=== PATIENT | male | born 1950 | race Caucasian/White ===

== ENCOUNTER 2020-05-29 07:12 | Day surgery (SDC) | payer MEDICARE, SELFPAY ==
[2020-05-23 15:05] VITALS: BMI 23.3
[2020-05-29] MEDS: Lactated Ringers 1,000 ML 50 ML IVCONT (07:52)
[2020-05-29 07:54] VITALS: BP 151/84; PULSE 81; RESP 16; TEMP 36.3; O2SAT 97
--- NOTE | 2020-05-29 07:59 | P.CONAN_ITS ---
[facility] Past Medical History Medical History Arrhythmia Diabetes GERD (gastroesophageal reflux disease) HTN (hypertension) Wears dentures Surgical History Surgical History (Updated 05/23/20 @ 15:09 by Mabel Cabrera) History of lumbar laminectomy Social History Social History Smoking Status: Former smoker Smoked in Last 30 Days: No Smoking Quit Date: 2009 Use of substances other than those prescribed or required for medical reasons: No Advance Directives Information Provided: No Recently lost weight without trying: No Meds Allergies Allergy/AdvReac Type Severity Reaction Status Date / Time No Known Allergies Allergy Verified 05/23/20 15:11 Home Medications Medication Instructions Recorded Confirmed Type amlodipine 1 tab PO BEDTIME 05/23/20 05/23/20 History aspirin [Aspirin Low-Strength] 81 mg PO DAILY 05/23/20 05/23/20 History pantoprazole 1 tab PO DAILY 05/23/20 05/23/20 History quinapril 1 tab PO DAILY 05/23/20 05/23/20 History Exam Exam Date and Time: May 29, 2020 0759 Height,Weight and Vital Signs: Height 5 ft 5 in Weight 63.503 kg Airway Mallampati Class: II TM Dist: >3cm Neck ROM: Full Denture: Upper and Lower Heart: rrr+s1s2 Lungs: cta b/l Assessment and Plan Assessment Anesthesia Assessment: Anesthesia Plan Discussed and Chart Reviewed Final Anesthetic Review NPO: Yes ASA Class: II Final Preanesthetic Review: No Changes in Pt Med Stat, Meds/Allgs Chart Reviewed, Consent Obtained/Reviewed and Anes Risks/Benef Reviewed Patient Risk: Low Procedure Risk: Low Assessment/Block/Sedation in SS: Assess/Block/Sedation-SS Anesthetic Plan Anesthetic Plan: MAC: Disposition: Standard PACU
--- NOTE | 2020-05-29 08:14 | MHC.SHP ---
Pre-Procedural Eval Section B Chief Complaint: reflux Details of Present Illness: see H&P no changes Relevant Family History (Specify if Yes): No Present Medications: see Short Stay Collaborative assessment Medical History: No relevant PMH History of Previous Operations: No relevant previous surgery Allergies: Allergies Allergy/AdvReac Type Severity Reaction Status Date / Time No Known Allergies Allergy Verified 05/23/20 15:11 Review of Systems Sugical H&P ROS: Negative: Constitution, Cardiovascular, Respiratory, Neurological, Psychiatric, Hem-Onc, Allergic/Immunologic, Gastrointestinal, Genitourinary, Musculoskeletal, Integumentary, Endocrine and Eyes/Ears/Nose/Throat Exam Surgical H&P Exam: Normal: HEENT, Normal: Heart, Normal: Lungs, Normal: Extremities, Normal: Abdomen, Normal: Skin and Normal: Neurological Plan Diagnosis/Plan: Unchanged Patient has been examined and remains a candidate for the planned procedure
[2020-05-29 08:39] VITALS: BP 86/53; PULSE 66; RESP 12; TEMP 36.9; O2SAT 99
[2020-05-29 08:54] VITALS: BP 108/65; PULSE 71; RESP 16; TEMP 36.9; O2SAT 96
--- NOTE | 2020-05-29 09:00 | OP_ITS ---
SURGEON: Yanick Herr MD PREOPERATIVE DIAGNOSIS: POSTOPERATIVE DIAGNOSIS: PROCEDURE PERFORMED: Upper endoscopy with biopsy. ESTIMATED BLOOD LOSS: COMPLICATIONS: ANESTHESIA: ASSISTANTS: SPECIMENS: INDICATION: Gastroesophageal reflux disease. MEDICATIONS: Monitored anesthesia care. DESCRIPTION OF PROCEDURE: The history and physical performed. The risks and benefits of the procedure were explained to the patient. Informed consent was obtained. The patient was placed in the left lateral decubitus position. The Olympus video gastroscope was introduced into the esophagus, stomach, and duodenum. Examination was performed. The scope was removed. He tolerated the procedure well and was taken to recovery in stable condition. FINDINGS: Esophagus: The esophagus was normal. There was no esophagitis. Biopsies were obtained from the EG junction and at 30 cm. Stomach: The stomach showed no evidence of masses, ulcers, or polyps. Biopsies were obtained from the antrum. Duodenum: The bulb and second portion were normal. IMPRESSION: Gastroesophageal reflux disease. RECOMMENDATION: Follow up the biopsy results. MD RENATE Loo/MODL / [id number]
--- NOTE | 2020-05-29 09:23 | HO.POSTANES ---
Post Anesthesia Evaluation Post Anesthesia Evaluation Vital Signs: Vital Signs Temp Pulse Resp BP Pulse Ox 05/29/20 08:54 98.4 F 71 16 108/65 96 05/29/20 08:39 98.4 F 66 12 86/53 L 99 05/29/20 07:54 97.3 F 81 16 151/84 H 97 Anesthesia: Monitored Mental Status: Awake Pain Control: Satisfactory Nausea/Vomiting: None Hydration: Adequate Anesthesia-Related Issues: No Anes. Related Issues
--- NOTE | 2020-05-29 09:27 | PM.OP ---
Brief Operative Note Date of Service: 05/29/20 Pre-op diagnosis: gerd Post-op diagnosis: same Procedure: EGD Surgeon: Yanick Herr Anesthesia: MAC Estimated blood loss (mL): 5 Pathology: other (antrum,egj,esophagus 30 cm) Condition: stable Disposition: PACU
== END 2020-05-29 09:36 | disposition home or self-care (01) ==
PROVIDERS: PCP Family Medicine; Visit Provider Internal Medicine Gastroenterology
PROC: 0DJ08ZZ Inspection of Upper Intestinal Tract, Via Natural or Artificial Opening Endoscopic (ICD-10-PCS; CPT 43235; principal; 2020-05-29 08:20)
DX: K21.9 Gastro-esophageal reflux disease without esophagitis (principal); I10 Essential (primary) hypertension; E11.9 Type 2 diabetes mellitus without complications; Z87.891 Personal history of nicotine dependence; Z79.82 Long term (current) use of aspirin; Z79.899 Other long term (current) drug therapy
CPT/HCPCS: 43239; 88305; 88342

== ENCOUNTER → 2021-11-25 08:40 | Outpatient (REF) | payer MEDICARE, SELFPAY ==
--- NOTE | ~2021-11-25 | NM_ITS ---
Myocardial perfusion study Indication: Chest pain to evaluate for myocardial ischemia Technique: The patient was brought in for a Lexiscan perfusion study on 11/25/2021. Patient performed low-level exercise and was injected 0.4 mg of Lexiscan intravenously. Within a minute of injection, 25 mCi of sestamibi was given intravenously. Images were obtained using the SPECT gamma camera interlaced with the gating device. Images were obtained in supine position. Resting perfusion study was performed on 11/26/2021. Patient was administered 25 mCi of sestamibi intravenously at rest. Images were then obtained in supine position. Images obtained with and without CT attenuation. Total DLP 76 mGy-cm. Images were processed with the software and compared side to side in short axis, horizontal long axis and vertical long axis views. Findings: The stress perfusion study showed non attenuated images show mildly reduced uptake in the inferior inferoseptal wall of the LV myocardium. Remainder of the LV myocardium is normally perfused. Attenuation corrected images show normal uptake of radiotracer in all segments of LV myocardium. The gated study shows normal LV systolic function with calculated LVEF of greater than 70 %. LV cavity is normal size. The gated study shows normal systolic wall thickening and contraction of segments. Resting study shows no change in perfusion pattern compared to stress perfusion study. Gating at rest reveals normal systolic wall motion with ejection fraction at greater than 70 %. The findings are consistent with normal myocardial perfusion. NM/NM errol perf SPECT rest & str Impression: 1. Myocardial perfusion imaging study shows normal myocardial perfusion 2. Gated LVEF is greater than 70% 3. Transient ischemic dilatation not present EKG is nondiagnostic for ischemia
--- NOTE | ~2021-11-25 | XR_ITS ---
EXAMINATION: XR CHEST CLINICAL INFORMATION: SOB. COMPARISON: Chest 07/29/2019. TECHNIQUE: 2 views of the chest were obtained. FINDINGS: The lungs are hyperinflated but clear of acute process. The heart size and pulmonary vascularity is normal. No gross bony abnormality seen. XR/XR chest 2V IMPRESSION: Unremarkable chest exam. No change from chest x-ray 07/29/2019.
--- NOTE | 2021-11-25 08:47 | CA_ITS ---
Acquisition Time: 2021-11-25 08:54:13 Total Exercise Time: 00:02:00 Test Indications: Dyspnea Medications: AMLODIPINE PANTOPRAZOLE ZYRTEC Protocol: LEXISCAN Max HR: 112 BPM 75% of Pred: 148 BPM Max BP: 160/086 mmHG Max Work Load: 1.0 METS Pharmacological stress test with Lexiscan injection, while sitting, without anginal symptoms, without arrythmia, with normotensive response to injection, with nondiagnostic EKG for ischemia.Nuclear images pending, Test reviewed with Dr Nielsen. Note: test ordered as exercise nuclear stress test however baseline LBBB and it was changed to a pharmacological nuclear stress test. Referred By: Sonny Whitfield Overread By: PATSY BHATT
== END ==
LOC: HO.CARD 08:40
PROVIDERS: PCP Family Medicine; Visit Provider Family Medicine
DX: R07.9 Chest pain, unspecified (principal); R06.09 Other forms of dyspnea; I10 Essential (primary) hypertension; E11.9 Type 2 diabetes mellitus without complications
CPT/HCPCS: 71046; 78452; 93017; A9500; J0280; J2785

== ENCOUNTER 2025-01-19 15:19 | Outpatient (REF) | payer MEDICARE, SELFPAY ==
--- NOTE | ~2025-01-19 | US_ITS ---
CLINICAL HISTORY: bilat. carotid stenosis US bilateral carotid duplex Comparison: None provided Findings: Significant calcified and mild soft plaques of left carotid bulb and proximal ICA. Moderate soft plaque of the right mid ICA. Elevated peak systolic velocity of left proximal ICA and right mid to distal ICA with spectral broadening, worse on the left. Peak systolic velocities: Right CCA: 80 cm/s Right ICA: 104 cm/s proximally, 232 cm/s at the midsegment, 168 cm/s distal segment ICA/CCA ratio: 0.8 Right ECA: Unremarkable Right vertebral and subclavian artery flow antegrade. Left CCA: 72 cm/s Left ICA: 826 cm/s proximal segment, 125 cm/s midsegment, 53 cm/s ICA/CCA ratio: 8.1 Left ECA: Unremarkable Left vertebral and subclavian artery flow antegrade. Impression: 1. Hemodynamically severe stenosis of left proximal ICA 80-99%. 2. Moderate stenosis of right mid ICA 50-79%. 3. Recommend CT angiography with IV contrast and interventional radiology consultation. This document has been electronically signed by: Katelyn Marin MD on 01/19/2025 16:49:54
--- OUTSIDE RECORDS SUMMARY | 2025-01-19 15:22 | XMS_ITS | Clinical Summary ---
Author Organization [facility] [employer] Address [address] [place] [address] Phone Care Team Providers Care Telephone Coin Box Collector Name Role Phone Sonny Whitfield MD Primary Care Provider [phone] Allergies No known active allergies Medications lisinopriL (PRINIVIL,ZESTR IL) 10 mg tablet Take 1 tablet (10 mg total) by mouth 1 (one) time each day. Active pantoprazole (PROTONIX) 40 mg EC tablet Take 1 tablet (40 mg total) by mouth 1 (one) time each day before breakfast. Do not crush, chew, or split. Active finasteride (PROSCAR) 5 mg tablet Take 1 tablet (5 mg total) by mouth 1 (one) time each day. Do not crush, chew, or split. Active aspirin 81 mg EC tablet Take 1 tablet (81 mg total) by mouth 1 (one) time each day. Active tamsulosin (FLOMAX) 0.4 mg 24 hr capsule Take 1 capsule (0.4 mg total) by mouth 1 (one) time each day with breakfast. Capsules should be taken 30 minutes following the same meal each day. Active amLODIPine (NORVASC) 5 mg tablet Take by mouth 1 (one) time each day. Active metoprolol succinate (TOPROL-XL) 25 mg 24 hr tablet Take 1 tablet (25 mg total) by mouth 1 (one) time each day. Do not crush or chew. Active Active Problems Problem Noted Date Diagnosed Date LBBB (left bundle branch block) 06/29/2024 Assessment & Plan (06/29/2024 4:29 PM EST): Idiopathic LBBB with prior evaluation including echo and stress test not demonstrating evidence of structural heart disease. We discussed that idiopathic LBBB has a favorable prognosis and a small proportion of patients will develop additional conduction disease in their lifetime. Monitor clinically and with periodic EKGs ~ yearly. PSVT (paroxysmal supraventri cular tachycardia) (CMS/HCC V24) 06/29/2024 Assessment & Plan (06/29/2024 4:32 PM EST): Paroxsymal SVT. One more extensive episode occurred recently which responded favorably to beta rona. I recommended continuing Metoprolol and monitoring frequency/severity of episodes. If they progress, then would need to consider addition of anti arrhythmic therapy vs ablation. I recommended an echocardiogram to evaluate cardiac structure and function in case anti arrhythmics are needed in the near term. Social History Tobacco Use Types Packs/Day Years Used Date Smoking Tobacco: Never Smokeless Tobacco: Never Tobacco Cessation:Counseling Given: Not Answered Alcohol Use Standard Drinks/Week Comments Yes 0 (1 standard drink = 0.6 oz pur e alcohol) occ Sex and Gender Information Value Date Recorded Sex Assigned at Not on file Legal Sex Male 3:00 PM EST Gender Identity Not on file Sexual Orientation Not on file Obstetrics History Last Filed Vital Signs Vital Sign Reading Time Taken Comments Blood Pressure 168/72 09/12/2024 3:57 PM EST Pulse 78 06/27/2024 1:35 PM EST Temperature - - Respiratory Rate - - Oxygen Saturation 97% 06/27/2024 1:35 PM EST Inhaled Oxygen Concentration - - Weight 65.8 kg (145 lb) 09/12/2024 3:57 PM EST Height 162.6 cm (5' 4 ) 09/12/2024 3:57 PM EST Body Mass Index 24.89 09/12/2024 3:57 PM EST Plan of Treatment Upcoming Encounters Date Type Department Care Team (Late st Contact Info) Description 06/26/2025 1:40 PM EST Office Visit [facility] [address] [place] [address] [address] [place] [address] Jose Sullivan NP [address] [place] [address] [address] [place] [address] Health Maintenance Due Date Last Done Comments Zoster Vaccines (1 of 2) 11/18/1999 Hepatitis B Vaccines (3 of 3 - Hep B Twinrix 3-dose series) 05/14/2016 12/11/2015, 11/12/2015 Cholesterol Screening (Lipid Panel) 06/24/2024 Colorectal Cancer Screening: Colonoscopy 06/24/2024 Depression Screening 06/24/2024 Falls Risk Assessment 06/24/2024 Hepatitis C Screening 06/24/2024 Medicare Annual Wellness Visit 06/24/2024 Social Influencers of Health Screening 06/24/2024 COVID-19 Vaccine ( season) 2024 03/18/2024, 05/05/2023, 11/26/2022, Additional history exists RSV Immunization Adult Patients (1 - 1-dose 75+ series) 2024 Influenza Vaccine (#1) 2025 , 05/19/2023, 05/20/2022, Additional history exists DTaP,Tdap,and Td Vaccines (2 - Td or Tdap) 11/11/2025 11/12/2015 Hepatitis A Vaccines Aged Out 12/11/2015, 11/12/19 16 No longer eligible based on patient's age to complete this topic Pneumococcal Vaccine: 50+ Years Completed 04/09/2021, 05/20/2016 HIB Vaccines Aged Out No longer eligi ble based on patient's age to complete this topic HPV Vaccines Aged Out No longer eligi ble based on patient's age to complete this topic IPV Vaccines Aged Out No longer eligi ble based on patient's age to complete this topic MMR Vaccines Aged Out No longer eligi ble based on patient's age to complete this topic Meningococcal ACWY Vaccine Aged Out N o longer eligible based on patient's age to complete this topic Meningococcal B Vaccine Aged Out No l onger eligible based on patient's age to complete this topic RSV Immunization Patients Under 20 months Aged Out No longer eligible based on patient's age to complete this topic Varicella Vaccines Aged Out No longer eligible based on patient's age to complete this topic Insurance [employer] Care Teams Telephone Coin Box Collector Relationship Specialty Start Date End Date Sonny Whitfield MD [address] [place] [address] Dr Rogers [facility] [place] [address] PCP - General Internal Medicine 06/24/24
--- OUTSIDE RECORDS SUMMARY | 2025-01-19 15:22 | XMS_ITS | Patient Health Record ---
Author Organization [facility] Address [address] [place] [id number] Care Team Providers Care Platform Software Engineer Name Role Phone Nahid BASHIR, Sonny Primary Care Provider UnavailYanick Cason Jr Unavailable Allergies Allergen (clinical drug ingredient) Drug/Non Drug Allergy documented on EMR Reaction Allergy Type Onset Date Status Seasonale Unknown Drug Allergy Active Reason For Referral No Information Medications Medication SIG (Take, Route, Frequency, Duration) Notes Start Date End Date Status Omeprazole Active Quinapril HCl 10 MG 1 tablet Orally Once a day Active Multivitamin Active Pantoprazole Sodium 40 MG TAKE 1 TABLET BY MOUTH EVERY DAY for 90 Needs f/u office visit. Active Famotidine 40 MG/5ML as directed Orally Active amLODIPine Besylate 5 MG 1 tablet Orally Once a day Active Immunizations Vaccine Route Administration Date Status Comme nts Influenza Unknown 04/10/2020 Administered Influenza Unknown 05/01/2021 Administered Social History Tobacco Use: Social History Observation Description Date Details (start date - stop date) Never Smoker NA - NA Tobacco Use/Smoking Question Answer Notes Patient is a nonsmoker Alcohol Screen Question Answer Notes Did you have a drink contain ing alcohol in the past year? Yes How often did you have a dri nk containing alcohol in the past year? 4 or more times a week (4 points) How many drinks did you have on a typical day when you were drinking in the past year? 1 or 2 drinks (0 point) How often did you have 6 or more drinks on one occasion in the past year? Never (0 point) Points 4 Interpretation Positive Section Notes: Ocassional wine at dinner Ocassional wine at dinner Problems Problem Type SNOMED Code ICD Code Onset Dates Problem Status W/U Status Risk Notes Problem [id number] GERD without esophagitis (K21.9) Active confirmed Problem [id number] Colonoscopy refused (Z53.20) Active confirmed Plan Of Treatment Future Test Test Name Order Date UPPER GI ENDOSCOPY 04/27/2020 Insurance Providers Payer Name Payer Address Payer Phone Subscriber Number Group Number Insured Name Patient Relationship to Insured Coverage Start Date Coverage End Date [facility] [address] [place] [phone] [id number] SABAS LEE Self - patient is the insured Medical (General) History Medical History History ICD Code Gastroesophageal reflux dise ase, upper endoscopy 05/29/20, no esophagitis, no BE or HP on biopsies hypertension Colonoscopy refused by patient Surgical History Surgery Date(Month/Year) lumbar laminectomy
== END 2025-01-19 15:20 | disposition home or self-care (01) ==
LOC: HO.US 15:19
PROVIDERS: Absent Provider Internal Medicine; PCP Internal Medicine; Visit Provider Family Medicine
DX: G45.1 Carotid artery syndrome (hemispheric) (principal)
CPT/HCPCS: 93880

== ENCOUNTER → 2025-01-19 15:36 | Outpatient (BNV) | payer MEDICARE, SELFPAY | PROVIDERS: Absent Provider Internal Medicine; PCP Internal Medicine; Visit Provider Radiology Diagnostic Radiology | DX: I65.23 Occlusion and stenosis of bilateral carotid arteries (principal) | CPT/HCPCS: 93880 ==

== ENCOUNTER 2025-01-31 08:53 | Outpatient (REF) | payer MEDICARE, SELFPAY ==
[2025-01-31 11:07] LABS: Blood Urea Nitrogen 25 mg/dL (9-16); Estimated Glomerular Filt Rate 50
== END 2025-01-31 08:54 | disposition home or self-care (01) ==
LOC: HO.LAB 08:53
PROVIDERS: PCP Internal Medicine; Visit Provider Surgery Vascular Surgery
DX: I65.22 Occlusion and stenosis of left carotid artery (principal); I87.2 Venous insufficiency (chronic) (peripheral); E11.9 Type 2 diabetes mellitus without complications
CPT/HCPCS: 36415; 82565; 84520; 99202

== ENCOUNTER 2025-01-31 08:53 | Outpatient (AMB) | payer MEDICARE, SELFPAY ==
--- NOTE | 2025-01-31 08:57 | MHC.OFFVIS ---
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 Had carotid US on January 19. No complaints. 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 The condition was initially identified during a visit with Dr. Whitfield, where bruits were detected, prompting further investigation. The patient is asymptomatic, with no history of vision loss, garbled speech, or loss of function. An ultrasound revealed plaque buildup on the left carotid artery, categorizing the patient as asymptomatic but with significant blockage. The patient has a history of type 2 diabetes mellitus, managed through diet, with a recent A1c of 5.6%. He quit smoking 20 years ago and has a history of supraventricular tachycardia, managed with metoprolol 50 mg, which resolved the episodes. The patient reports regular exercise, walking an hour and a half daily, which helps manage mild venous insufficiency in the left foot. He has a low resting heart rate attributed to metoprolol and physical activity. [facility] Medical History Wears dentures Diabetes GERD (gastroesophageal reflux disease) Arrhythmia HTN (hypertension) Surgical History History of lumbar laminectomy Review of Systems Const All systems reviewed & are unremarkable except as noted in HPI and below Reports no additional complaints ENT Reports Normal hearing present Card Denies chest pain, Denies chest pain at rest, Denies chest pain with activity and Denies pedal edema Resp Denies cough GI Denies abdominal pain Musc Denies abnormal gait, Denies muscle cramps and Denies radiating pain into limb Skin/Breast Denies skin ulcer and Denies wounds Neuro Reports Normal hearing present and Denies abnormal gait Psych Reports no additional complaints Physical Exam Const General: cooperative, healthy appearing and comfortable Orientation/consciousness: oriented to person, oriented to place and oriented to time HEENT Head: Yes normal to inspection Neck Neck: Yes normal visual inspection Carotids: no bruits Chest Chest palpation & inspection: normal inspection of the chest Resp Effort & Inspection: normal respiratory effort and able to speak in complete sentences Auscultation: clear to auscultation bilaterally, no crackles, no rales, no rhonchi and no wheezes Cardio Rate: regular rate Rhythm: regular rhythm Heart sounds: S1 normal heart sound present and S2 normal heart sound present Bruits: no carotid bruits Peripheral pulses: Peripheral pulses 2+ throughout GI Inspection: Yes normal to inspection Skin Wounds: no wounds Hair: normal Neuro General: oriented to person, oriented to place and oriented to time Cranial nerves: Yes CN's II-XII intact bilaterally and Yes Normal hearing present Cognition (Neuro): normal cognition Motor exam (neuro): 5/5 motor strength present throughout Extrem Other: venous exam: No significant superficial varicosities or spider telangiectasias, minimal edema General: No clubbing, No cyanosis and No edema Psych Appearance: grossly normal Mental Status: mental status grossly normal Speech and movement: Normal speech and movement present Results Reviewed Results Reviewed: Ultrasound dated 01/19/2025 demonstrates right side 50-79% stenosis left side 80-99% stenosis with a peak systolic velocity of 826. Written report and images were reviewed. Assessment & Plan Assessment & Plan (1) Left carotid stenosis: Code(s): I65.22 - Occlusion and stenosis of left carotid artery Category: Medical Plan: In short patient has asymptomatic high-grade left carotid stenosis.. We have reviewed signs and symptoms of a stroke. We also discussed risk factor modification inclusive a healthy diet low in cholesterol. The patient has already had ultrasound performed. He will need a confirmatory CT scan to better elucidate location of disease. We will try to expedite this.. Should there be any changes or signs or symptoms of a stroke we will be happy to see them back sooner. Thank you for allowing us to participate in this patient's care. If there are any questions or concerns please do not hesitate to contact us. Orders: Orders CT angio neck Today I65.22 - Occlusion and stenosis of left carotid artery Blood Urea Nitrogen Today I65.22 - Occlusion and stenosis of left carotid artery Creatinine Today I65.22 - Occlusion and stenosis of left carotid artery Coding Level of Care Code New Pt Level 4 (69718) Complex EM visit Add On G2211 Diagnoses Left carotid stenosis I65.22
--- OUTSIDE RECORDS SUMMARY | 2025-01-31 09:18 | XMS_ITS | Patient Health Record ---
Author Organization [facility] Address [address] [place] [phone] Care Team Providers Care Area Development Consultant Name Role Phone Nahid (RETIRED) Sonny BASHIR Primary Care Provider Unavailable Yanick Herr Jr Unavailable [phone] Allergies Allergen (clinical drug ingredient) Drug/Non Drug [...] Problem Status W/U Status Risk Notes Problem [id number] GERD without esophagitis (K21.9) Active confirmed Problem [id number] Colonoscopy refused (Z53.20) Active confirmed Plan Of Treatment Future Test Test Name Order Date UPPER GI ENDOSCOPY 04/27/2020 Insurance Providers Payer Name Payer Address Payer Phone Subscriber Number Group Number Insured Name Patient Relationship to Insured Coverage Start Date Coverage End Date [facility] [address] [place] [place] [place] [phone] [id number] SABAS LEE Self - patient is the insured Medical (General) History Medical History History ICD Code Gastroesophageal reflux dise ase, upper endoscopy 05/29/20, no esophagitis, no BE or HP on biopsies hypertension Colonoscopy refused by patient Surgical History Surgery Date(Month/Year) lumbar laminectomy
--- OUTSIDE RECORDS SUMMARY | 2025-01-31 09:18 | XMS_ITS | Clinical Summary ---
Author Organization [facility] Address [address] [place] [address] Phone Care Team Providers Care Rubber Cutter And Shape Carver Name Role Phone Sonny Whitfield MD Primary Care Provider [phone] Allergies No known active allergies Medications lisinopriL [...] 06/26/2025 1:40 PM EST Office Visit [facility] [address] [place] [address] Dr Maldonado [address] [place] [address] Jose Sullivan NP [address] [place] [address] Dr Rogers [address] [place] [address] Health Maintenance Due Date Last Done Comments Zoster Vaccines (1 of 2) 11/18/1999 Hepatitis B Vaccines (3 of 3 - Hep B Twinrix 3-dose series) 05/14/2016 12/11/2015, 11/12/2015 Cholesterol Screening (Lipid Panel) 06/24/2024 Colorectal Cancer Screening: Colonoscopy 06/24/2024 Falls Risk Assessment 06/24/2024 Hepatitis C Screening 06/24/2024 Medicare Annual Wellness Visit 06/24/2024 Social Influencers of Health Screening 06/24/2024 Depression Screening 07/13/2024 COVID-19 Vaccine ( season) 2024 03/18/2024, 05/05/2023, [...] [employer] [place] [employer] Care Teams Rubber Cutter And Shape Carver Relationship Specialty Start Date End Date Sonny Whitfield MD [address] [place] [address] Dr Rogers [facility] [place] [place] [address] PCP - General Internal Medicine 06/24/24
== END 2025-01-31 09:41 | disposition home or self-care (01) ==
LOC: HO.HVS 08:54
PROVIDERS: PCP Internal Medicine; Visit Provider Surgery Vascular Surgery
DX: I65.22 Occlusion and stenosis of left carotid artery (principal)
CPT/HCPCS: 99204; G2211

== ENCOUNTER 2025-02-09 09:12 | Outpatient (REF) | payer MEDICARE, SELFPAY ==
--- NOTE | ~2025-02-09 | CT_ITS ---
EXAMINATION: CT ANGIOGRAM NECK CLINICAL INFORMATION: Hemodynamically skin stenosis left proximal ICA 80-99%. COMPARISON: None available. TECHNIQUE: Following intravenous administration 80 mL of O[address] CT angiogram of the neck was obtained. Initially to a thin axial and reformatted 8 mm thick sagittal, coronal and oblique images of neck were obtained. The degree of stenosis determined by NASCET criteria. This CT examination was performed using dose optimization techniques as appropriate, variously including the following: *Automated exposure control *Adjustment of mA and/or kV according to patient size (this includes techniques or standardized protocols for targeted exams where dose is matched to indication/reason for exam; i.e. extremities or head) *Use of iterative reconstruction technique DLP 308 FINDINGS: There is patient motion in superior half of the neck limiting evaluation. Vascular: The thoracic arch is widely patent with atherosclerotic calcification but no aneurysmal dilatation seen. There is a three-vessel branching of aortic arch with widely patent right brachiocephalic, left common carotid and left subclavian artery. Minimal hard plaque is seen at the origin of left subclavian artery. The right brachiocephalic artery bifurcates normally into common carotid and right subclavian artery which are widely patent. The right vertebral artery origin of this fluid signal subclavian is widely patent as well. Visualized first and second segment subpleural nodules are patent. Origin of left vertebral artery is widely patent. Both vertebral arteries are widely patent and appear codominant throughout the course of the neck extending intracranially. The right common carotid artery is patent with normal bifurcation into internal and extra carotid arteries which are patent throughout the neck. There is minimal atherosclerotic calcified plaque in the right proximal ICA with minimal circumferential thrombus with narrowing measuring 1.9 cm in transverse dimension on axial slice 194/12. Distal to the narrowing ICA measures 4.1 cm with a 52% stenosis. The bulb is patent. The right ICA rest of the neck is widely patent. The left common carotid artery is patent in its neck and bifurcates normally into internal and external carotid artery. The bulbous patent. The external carotid arteries widely patent. Severe high-grade stenosis left proximal ICA is noted. The transverse lumen at stenosis on axial image 189/12 measures 7 mm. The transverse lumen there is distal to the narrowing measures 3.88 mm. As per NASCET criteria the stenosis is approximately 83%. Rest left internal carotid artery is widely patent in the neck. Both jugular veins are codominant and patent. Nonvascular: There is diffuse emphysematous changes in both lung apices. The tracheal, bronchial and pharyngeal airway is patent. No abnormal mediastinal adenopathy seen. Visualized bilateral parotid and submandibular gland are widely patent. Visualized bilateral paranasal sinuses and mastoid air cells are well-aerated. There is mild DJD C4-5, C5-6, C6/7 disc levels with ventral and posterior spondylosis. No fracture or lytic process seen. CT/CT angio neck IMPRESSION: 80% stenosis left proximal ICA by NASCET criteria. 52% stenosis right proximal ICA by NASCET criteria. Hard atherosclerotic calcified plaques seen at the origin of left subclavian artery and bilateral carotid bulbs. Codominant vertebral arteries which are widely patent Fleischner guidelines were followed. Electronically signed by: Clark Mata MD 02/09/2025 02:27 PM EDT
--- OUTSIDE RECORDS SUMMARY | 2025-02-09 09:29 | XMS_ITS | Patient Health Record ---
Author Organization [facility] Address [address] [place] [address] Care Team Providers Care Supervisor Feed House Name Role Phone Nahid (RETIRED) Sonny BASHIR Primary Care Provider Unavailable Yanick Herr Jr Unavailable Allergies Allergen (clinical drug ingredient) [...] Problem Status W/U Status Risk Notes Problem [id number] GERD without esophagitis (K21.9) Active confirmed Problem [id number] Colonoscopy refused (Z53.20) Active confirmed Plan Of Treatment Future Test Test Name Order Date UPPER GI ENDOSCOPY 04/27/2020 Insurance Providers Payer Name Payer Address Payer Phone Subscriber Number Group Number Insured Name Patient Relationship to Insured Coverage Start Date Coverage End Date [facility] [address] [facility] [place] [address] [phone] [id number] SABAS LEE Self - patient is the insured Medical (General) History Medical History History ICD Code Gastroesophageal reflux dise ase, upper endoscopy 05/29/20, no esophagitis, no BE or HP on biopsies hypertension Colonoscopy refused by patient Surgical History Surgery Date(Month/Year) lumbar laminectomy
--- OUTSIDE RECORDS SUMMARY | 2025-02-09 09:29 | XMS_ITS | Clinical Summary ---
Author Organization [facility] Address [address] [place] [address] Phone Care Team Providers Care County Commissioner Name Role Phone Sonny Whitfield MD Primary Care Provider [phone] Allergies No known active allergies Medications lisinopriL [...] 06/26/2025 1:40 PM EST Office Visit [facility] [address] [place] [address] Dr Maldonado [address] [place] [address] Jose Sullivan NP [address] [place] [address] Dr [address] [place] [address] Health Maintenance Due Date Last Done Comments [...] [employer] [place] [employer] Care Teams [place] Commissioner Relationship Specialty Start Date End Date Sonny Whitfield MD [address] [place] [address] Dr Rogers [facility] [place] [address] PCP - General Internal Medicine 06/24/24
[2025-02-09] MEDS: iohexoL 350 MG/ML 100 ML INFUS..BTL IV (10:37)
== END 2025-02-09 09:13 | disposition home or self-care (01) ==
LOC: HO.CT 09:12
PROVIDERS: PCP Internal Medicine; Visit Provider Surgery Vascular Surgery
DX: I65.22 Occlusion and stenosis of left carotid artery (principal)
CPT/HCPCS: 70498; Q9967

== ENCOUNTER → 2025-02-09 09:13 | Outpatient (BNV) | payer MEDICARE, SELFPAY | PROVIDERS: PCP Internal Medicine; Visit Provider Radiology Diagnostic Radiology | DX: I65.22 Occlusion and stenosis of left carotid artery (principal) | CPT/HCPCS: 70498 ==

== ENCOUNTER 2025-02-21 08:49 | Outpatient (AMB) | payer MEDICARE, SELFPAY ==
[2025-02-21 09:00] VITALS: BP 142/90; BMI 24.0
--- NOTE | 2025-02-21 09:00 | MHC.OFFVIS ---
Vital Signs 02/21/25 09:00 02/21/25 09:05 Height 5 ft 4 in Weight 140 lb BMI 24.0 BP 142/90 H 140/84 H Blood Pressure Location Lt brachial Rt brachial Position Sitting Sitting Intake Visit Reasons: 1 week follow up CTA Neck 02/09/25 Intake Note: 1 week follow up CTA Neck 02/09/25, no complaints other than tension headaches Philanthropy Officer Required: No Accompanied by: Spouse Allergies No Known Allergies Allergy (Verified 02/21/25 09:01) HPI HPI 1 week follow up CTA Neck 02/09/25: Details: Patient presents for follow-up regarding left carotid stenosis. This was originally identified as a carotid bruit by his primary care team. He has been asymptomatic from this. He had undergone noninvasive testing demonstrating high-grade left carotid stenosis. He most recently underwent CT angiogram. He has had no interval issues. He has no issues climbing up 2 flights of stairs. Of note he has had an outside echo performed on 09/12/2024 [facility] Medical History Wears dentures Diabetes GERD (gastroesophageal reflux disease) Arrhythmia HTN (hypertension) Surgical History History of lumbar laminectomy Review of Systems Const All systems reviewed & are unremarkable except as noted in HPI and below Reports no additional complaints ENT Reports Normal hearing present Card Denies chest pain, Denies chest pain at rest, Denies chest pain with activity and Denies pedal edema Resp Denies cough GI Denies abdominal pain Musc Denies abnormal gait, Denies muscle cramps and Denies radiating pain into limb Skin/Breast Denies skin ulcer and Denies wounds Neuro Reports Normal hearing present and Denies abnormal gait Psych Reports no additional complaints Physical Exam Vital Signs: Last Vital Signs BP 140/84 H 02/21/25 09:05 BMI result Body Mass Index 24.0 Const General: cooperative, healthy appearing and comfortable Orientation/consciousness: oriented to person, oriented to place and oriented to time HEENT Head: Yes normal to inspection Neck Neck: Yes normal visual inspection Carotids: no bruits Chest Chest palpation & inspection: normal inspection of the chest Resp Effort & Inspection: normal respiratory effort and able to speak in complete sentences Auscultation: clear to auscultation bilaterally, no crackles, no rales, no rhonchi and no wheezes Cardio Rate: regular rate Rhythm: regular rhythm Heart sounds: S1 normal heart sound present and S2 normal heart sound present Bruits: no carotid bruits Peripheral pulses: Peripheral pulses 2+ throughout GI Inspection: Yes normal to inspection Skin Wounds: no wounds Hair: normal Neuro General: oriented to person, oriented to place and oriented to time Cranial nerves: Yes CN's II-XII intact bilaterally and Yes Normal hearing present Cognition (Neuro): normal cognition Motor exam (neuro): 5/5 motor strength present throughout Extrem Other: venous exam: No significant superficial varicosities or spider telangiectasias, minimal edema General: No clubbing, No cyanosis and No edema Psych Appearance: grossly normal Mental Status: mental status grossly normal Speech and movement: Normal speech and movement present Results Reviewed Results Reviewed: CT scan dated 02/09/2025 demonstrates left-sided carotid stenosis of 80% right-sided stenosis of 52% written report and images were reviewed. Echo from 09/12/2024 was reviewed and demonstrates an ejection fraction of 60-65% with no wall motion abnormalit Assessment & Plan Assessment & Plan (1) Left carotid stenosis: Code(s): I65.22 - Occlusion and stenosis of left carotid artery Category: Medical Plan: In short patient will require left carotid endarterectomy. Risks benefits complications including but not limited to bleeding infection stroke and were discussed in detail with the patient. Patient understood and consented. He will require cardiac risk stratification. Thank you for allowing us to assist in his care. If there are any questions or concerns please do not hesitate to contact us Plan Patient was informed and verbally consented to the use of an ambient scribe for clinic note documentation during this visit. Patient Instructions: . Coding Level of Care Code Est Pt Level 4 (73634) Complex EM visit Add On G2211 Diagnoses Left carotid stenosis I65.22
[2025-02-21 09:05] VITALS: BP 140/84
--- OUTSIDE RECORDS SUMMARY | 2025-02-21 09:08 | XMS_ITS | Patient Health Record ---
Author Organization [facility] Address [address] [place] [address] Care Team Providers Care Urban Planning Teacher Name Role Phone Nahid (RETIRED) Sonny BASHIR [...] Problem Status W/U Status Risk Notes Problem [id number] GERD without esophagitis (K21.9) Active confirmed Problem [id number] Colonoscopy refused (Z53.20) Active confirmed Plan Of Treatment Future Test Test Name Order Date UPPER GI ENDOSCOPY 04/27/2020 Insurance Providers Payer Name Payer Address Payer Phone Subscriber Number Group Number Insured Name Patient Relationship to Insured Coverage Start Date Coverage End Date [facility] [address] [facility] [place] [phone] [id number] SABAS LEE Self - patient is the insured Medical (General) History Medical History History ICD Code Gastroesophageal reflux dise ase, upper endoscopy 05/29/20, no esophagitis, no BE or HP on biopsies hypertension Colonoscopy refused by patient Surgical History Surgery Date(Month/Year) lumbar laminectomy
--- OUTSIDE RECORDS SUMMARY | 2025-02-21 09:08 | XMS_ITS | Clinical Summary ---
Author Organization [facility] Address [address] [place] [address] Phone Care Team Providers Care Marquetry Worker Name Role Phone Sonny Whitfield MD Primary Care Provider [phone] Allergies No known active allergies Medications lisinopriL [...] Description 06/26/2025 1:40 PM EST Office Visit [facility] [address] [place] [address] Dr Maldonado [address] [place] [address] Jose Sullivan NP [address] [place] [address] Dr Rogers [address] [place] [address] Health Maintenance Due Date Last Done Comments [...] [employer] [place] [employer] ADVANTAGE Care Teams Marquetry Worker Relationship Specialty Start Date End Date Sonny Whitfield MD [address] [place] [address] Dr [place]ers [place] [address] PCP - General Internal Medicine 06/24/24
== END 2025-02-21 09:50 | disposition home or self-care (01) ==
LOC: HO.HVS 08:50
PROVIDERS: PCP Internal Medicine; Visit Provider Surgery Vascular Surgery
DX: I65.22 Occlusion and stenosis of left carotid artery (principal)
CPT/HCPCS: 99214; G2211

== ENCOUNTER → 2025-02-21 08:49 | Outpatient (BNVA) | payer MEDICARE, SELFPAY | PROVIDERS: PCP Internal Medicine; Visit Provider Surgery Vascular Surgery | DX: I65.22 Occlusion and stenosis of left carotid artery (principal) | CPT/HCPCS: 99212 ==

== ENCOUNTER 2025-04-10 10:29 | Inpatient (IN) | payer MEDICARE, SELFPAY ==
[2025-04-05 13:01] VITALS: BP 173/75; PULSE 67; RESP 20; O2SAT 97; BMI 25.3
[2025-04-05 14:22] LABS: Hematocrit 47.1 % (42.0-52.0); Hemoglobin 15.7 g/dl (14.0-18.0); Mean Corpuscular HGB Conc 33.3 g/dl (31.0-36.0); Mean Corpuscular Hemoglobin 28.5 pg (27.0-33.0); Mean Corpuscular Volume 85.5 fL (80.0-98.0); NRBC Abs Auto 0.000 X10*3/uL (0.0-0.012); NRBC Pct Auto 0.0 /100WBC (0.0-0.2); Platelet Count 175 X10*3/uL (160-400); Red Blood Count 5.51 X10*6/uL (4.60-5.80); White Blood Count 7.1 X10*3/uL (4.8-10.8)
[2025-04-05 14:59] LABS: INTERNATIONAL NORM RATIO 1.0 (0.9-1.1); Partial Thromboplastin Time 32.3 SEC (26.7-34.1); Prothrombin Time 11.1 SEC (10.9-12.4)
[2025-04-05 15:12] LABS: Anion Gap 12 (12-20); Blood Urea Nitrogen 24 mg/dL (9-16); Calcium 9.9 mg/dL (8.4-10.2); Carbon Dioxide 29 mmol/L (22-29); Chloride 106 mmol/L (96-108); Creatinine Clr Calc Pharmacy 40.1; Estimated Glomerular Filt Rate 52; Potassium 5.5 mmol/L (3.3-5.1); Sodium 141 mmol/L (135-145)
[2025-04-10] VITALS (34 sets, daily range): BP systolic 80–159; BP diastolic 38–75; PULSE 62–100; RESP 10–18; TEMP 36.2–36.7; O2SAT 91–98
--- NOTE | 2025-04-10 07:25 | MHC.SHP ---
Pre-Procedural Eval Section A - 24 Hr Update-Section A only Date of Service: 04/10/25 Section B - Complete if H&P > 30 days Chief Complaint: Occlusion and stenosis of left carotid artery Relevant Family History (Specify if Yes): No Present Medications: see Short Stay Collaborative assessment Allergies: Allergies Allergy/AdvReac Type Severity Reaction Status Date / Time Sulfa (Sulfonamide Allergy Severe severe Verified 04/05/25 13:00 Antibiotics) facial swelling Seasonal Allergies Allergy Intermediate hayfever Verified 04/05/25 13:00 symptoms Review of Systems Sugical H&P ROS: Negative: Constitution, Cardiovascular, Respiratory and Neurological Exam Surgical H&P Exam: Normal: HEENT, Normal: Heart, Normal: Lungs, Normal: Extremities and Normal: Neurological Plan Diagnosis/Plan: Unchanged I have reviewed the history and physical and performed a pertinent physical examination on my patient. No changes have occurred unless specified. Time Spent With Patient Time: Total time managing care of this patient today ____ minutes.
[2025-04-10] MEDS: Lactated Ringers 1,000 ML 100 ML IVCONT (10:32)
[2025-04-10 10:35] LABS: Glucose, Whole Blood 119 mg/dL (60-115)
[2025-04-10 10:40] LABS: Anion Gap 11 (12-20); Carbon Dioxide 28 mmol/L (22-29); Chloride 106 mmol/L (96-108); Potassium 3.8 mmol/L (3.3-5.1); Sodium 141 mmol/L (135-145)
--- NOTE | 2025-04-10 10:50 | HO.ANESPROP2 ---
Documented by User: Brooke Baltazar NP 04/05/25 15:29 HPI - Anesthesia Eval Consult details Narrative: 74yo M for Left Carotid Endarterectomy, 04/10/25 Cardiac optimized via [facility] Cardiology No recent illness, nasal congestion r/t allergies No CP/SOB with ~ 5 miles on treadmill nikko. Recent hiking trip to [facility] - noted some SOB with higher altitude, none when returning to baseline. Carotid ds: bruit heard by PCP and sent for work up White coat htn: BP's at home 90-110/60-70 SVT: controlled on beta rona DM: Diet controlled, A1C <6% Preop K mildly elevated @ 5.5. Discussed dietary changes with patient. Admits to eating a lot of bananas. Will hold off until DOS and recheck. PMFSH Active Problems Active Problems: All Active Problems Left carotid stenosis (Acute) Carotid stenosis, bilateral (Acute) Past Medical History Medical History (Updated 04/05/25 @ 13:07 by Mabel Cabrera RN) White coat syndrome with hypertension BPH (benign prostatic hyperplasia) Renal calculi Emphysema lung SVT (supraventricular tachycardia) LBBB (left bundle branch block) Wears dentures Diabetes GERD (gastroesophageal reflux disease) HTN (hypertension) Family History Family history of problems with anesthesia: No Surgical History Surgical History (Updated 04/05/25 @ 12:59 by Mabel Cabrera RN) Hx of cystoscopy History of esophagogastroduodenoscopy (EGD) History of lumbar laminectomy History of Problems with Anesthesia: No Social History Social History Are you a primary dialysis patient care technician to a significant other at home: No Do you presently have visiting nurse or other home services: No Patient Tobacco Use Status: Former Tobacco user Tobacco use type: Cigarette Years Smoked: 25 Use of substances other than those prescribed or required for medical reasons: No Have you been hit, kicked, punched, or otherwise hurt by someone within the past year? If so, by whom?: No Spiritual Healthcare Practices: no Faith Healthcare Practices: no Cultural Healthcare Practices: no Are you DNR?: No Advance Directives on File: No Poor oral hygiene: No Meds Allergies Allergy/AdvReac Type Severity Reaction Status Date / Time Sulfa (Sulfonamide Allergy Severe severe Verified 04/05/25 13:00 Antibiotics) facial swelling Seasonal Allergies Allergy Intermediate hayfever Verified 04/05/25 13:00 symptoms Home Medications ?Medication ?Instructions ?Recorded ?Confirmed ?Last Taken ?Type amlodipine 5 mg tablet 1 tab PO BEDTIME 05/23/20 04/04/25 05/28/20 22:00 History aspirin 81 mg tablet,delayed 81 mg PO QAM 05/23/20 04/05/25 05/23/20 08:00 History release pantoprazole 40 mg tablet,delayed 1 tab PO QAM 05/23/20 04/05/25 05/28/20 08:00 History release finasteride 5 mg tablet 5 mg PO QAM 01/31/25 04/05/25 Unknown History metoprolol succinate 50 mg 50 mg PO BEDTIME 01/31/25 04/05/25 Unknown History tablet,extended release 24 hr lisinopril 10 mg tablet 10 mg PO QAM 02/21/25 04/05/25 Unknown History tamsulosin 0.4 mg capsule 0.4 mg PO BEDTIME 02/21/25 04/05/25 Unknown History rosuvastatin 20 mg tablet 20 mg PO BEDTIME 04/04/25 04/05/25 Unknown History Exam Height,Weight and Vital Signs: Height 5 ft 4 in Weight 66.9 kg Last Vital Signs Pulse 67 04/05/25 13:01 Resp 20 04/05/25 13:01 BP 173/75 H 04/05/25 13:01 Pulse Ox 97 04/05/25 13:01 O2 Del Method Room Air 04/05/25 13:01 Pertinent Lab Results Pertinent Lab Results: Lab Results 04/05/25 04/05/25 Range/Units 13:50 14:03 WBC 7.1 (4.8-10.8) X10*3/uL RBC 5.51 (4.60-5.80) X10*6/uL Hgb 15.7 (14.0-18.0) g/dl Hct 47.1 (42.0-52.0) % MCV 85.5 (80.0-98.0) fL MCH 28.5 (27.0-33.0) pg MCHC 33.3 (31.0-36.0) g/dl RDW 13.3 (11.0-16.0) % Plt Count 175 (160-400) X10*3/uL MPV 10.5 (9.4-12.4) fL Absolute Nucleated RBC 0.000 (0.0-0.012) X10*3/uL Nucleated RBC % (auto) 0.0 (0.0-0.2) /100WBC PT 11.1 (10.9-12.4) SEC INR 1.0 (0.9-1.1) APTT 32.3 (26.7-34.1) SEC Sodium 141 (135-145) mmol/L Potassium 5.5 H (3.3-5.1) mmol/L Chloride 106 (96-108) mmol/L Carbon Dioxide 29 (22-29) mmol/L Anion Gap 12 (12-20) BUN 24 H (9-16) mg/dL Creatinine 1.33 (0.5-1.4) mg/dL Estim Creat Clear Calc 40.1 Estimated GFR 52 Random Glucose 111 (60-115) mg/dL Calcium 9.9 (8.4-10.2) mg/dL Blood Type O Positive Antibody Screen NEGATIVE Narrative Narrative: EKG 02/2025 Ventricular Rate ECG 67 ? Atrial Rate 67 ? P-R Interval 180 ? QRS Duration 140 ? Q-T Interval 422 ? QTc 445 ? P Wave Patriot 59 ? R Patriot 69 ? T Patriot 72 ? ECG Interpretation ? ? ? Normal sinus rhythm. Left bundle branch block. Unchanged ECHO 09/2024 Left ventricle cavity size is normal. There is mild concentric hypertrophy. Systolic function is normal with an ejection fraction of 60-65%. There are no regional LV wall motion abnormalities. Biatrial dilatation No hemodynamically significant valvular dysfunction There is no prior study available for comparison NM errol perf SPECT rest & str 2021 Impression: 1. Myocardial perfusion imaging study shows normal myocardial perfusion 2. Gated LVEF is greater than 70% 3. Transient ischemic dilatation not present EKG is nondiagnostic for ischemia Airway Mallampati Class: I TM Dist: >3cm Neck ROM: Full Denture: Upper and Lower Heart: RRR Lungs: CTAB Assessment and Plan Assessment Anesthesia Assessment: Anesthesia Plan Discussed and PAT Visit Final Anesthetic Review Family History of Problems with Anesthesia: No History of Problems with Anesthesia: No Documented by User: Steffi Delcid DO 04/10/25 12:19 HPI - Anesthesia Eval Consult details Narrative: 74yo M for Left Carotid Endarterectomy, 04/10/25 Cardiac optimized via [facility] Cardiology No recent illness, nasal congestion r/t allergies No CP/SOB with ~ 5 miles on treadmill nikko. Recent hiking trip to [facility] - noted some SOB with higher altitude, none when returning to baseline. Carotid ds: bruit heard by PCP and sent for work up White coat htn: BP's at home 90-110/60-70 SVT: controlled on beta rona DM: Diet controlled, A1C <6% Preop K mildly elevated @ 5.5. Currently 3.8 on day of surgery. [facility] Past Medical History Medical History (Updated 04/05/25 @ 13:07 by Mabel Cabrera RN) White coat syndrome with hypertension BPH (benign prostatic hyperplasia) Renal calculi Emphysema lung SVT (supraventricular tachycardia) LBBB (left bundle branch block) Wears dentures Diabetes GERD (gastroesophageal reflux disease) HTN (hypertension) Family History Family history of problems with anesthesia: No Surgical History Surgical History (Updated 04/05/25 @ 12:59 by Mabel Cabrera RN) Hx of cystoscopy History of esophagogastroduodenoscopy (EGD) History of lumbar laminectomy History of Problems with Anesthesia: No Social History Social History Are you a primary dialysis patient care technician to a significant other at home: No Do you presently have visiting nurse or other home services: No Patient Tobacco Use Status: Former Tobacco user Tobacco use type: Cigarette Years Smoked: 25 Use of substances other than those prescribed or required for medical reasons: No Have you been hit, kicked, punched, or otherwise hurt by someone within the past year? If so, by whom?: No Spiritual Healthcare Practices: no Faith Healthcare Practices: no Cultural Healthcare Practices: no Are you DNR?: No Advance Directives on File: No Poor oral hygiene: No Meds Allergies Allergy/AdvReac Type Severity Reaction Status Date / Time Sulfa (Sulfonamide Allergy Severe severe Verified 04/05/25 13:00 Antibiotics) facial swelling Seasonal Allergies Allergy Intermediate hayfever Verified 04/05/25 13:00 symptoms Home Medications ?Medication ?Instructions ?Recorded ?Confirmed ?Last Taken ?Type amlodipine 5 mg tablet 1 tab PO BEDTIME 05/23/20 04/04/25 05/28/20 22:00 History aspirin 81 mg tablet,delayed 81 mg PO QAM 05/23/20 04/05/25 05/23/20 08:00 History release pantoprazole 40 mg tablet,delayed 1 tab PO QAM 05/23/20 04/05/25 05/28/20 08:00 History release finasteride 5 mg tablet 5 mg PO QAM 01/31/25 04/05/25 Unknown History metoprolol succinate 50 mg 50 mg PO BEDTIME 01/31/25 04/05/25 Unknown History tablet,extended release 24 hr lisinopril 10 mg tablet 10 mg PO QAM 02/21/25 04/05/25 Unknown History tamsulosin 0.4 mg capsule 0.4 mg PO BEDTIME 02/21/25 04/05/25 Unknown History rosuvastatin 20 mg tablet 20 mg PO BEDTIME 04/04/25 04/05/25 Unknown History Exam Exam Date and Time: 04/10/25 1050 Height,Weight and Vital Signs: Vital Signs Pulse Rate 67 04/05/25 13:01 Respiratory Rate 20 04/05/25 13:01 Blood Pressure 173/75 H 04/05/25 13:01 Pulse Oximetry 97 04/05/25 13:01 Oxygen Delivery Method Room Air 04/05/25 13:01 Temperature 97.9 F 04/10/25 10:17 Pulse Rate 72 04/10/25 10:17 Respiratory Rate 14 04/10/25 10:17 Blood Pressure 159/75 H 04/10/25 10:17 Pulse Oximetry 98 04/10/25 10:17 Oxygen Delivery Method Room Air 04/10/25 10:17 Height 5 ft 4 in Weight 66.9 kg Height 5 ft 4 in Weight 66.9 kg Last Vital Signs Pulse 67 04/05/25 13:01 Resp 20 04/05/25 13:01 BP 173/75 H 04/05/25 13:01 Pulse Ox 97 04/05/25 13:01 O2 Del Method Room Air 04/05/25 13:01 Airway Mallampati Class: I TM Dist: >3cm Neck ROM: Full Denture: Upper and Lower Heart: S1S2 Assessment and Plan Assessment Anesthesia Assessment: Anesthesia Plan Discussed and Chart Reviewed Final Anesthetic Review Family History of Problems with Anesthesia: No History of Problems with Anesthesia: No NPO: Yes ASA Class: III Final Preanesthetic Review: No Changes in Pt Med Stat, Meds/Allgs Chart Reviewed, Consent Obtained/Reviewed and Anes Risks/Benef Reviewed Patient Risk: Intermediate Procedure Risk: High Anesthetic Plan Anesthetic Plan: GA and Agree w/ Assess. and Plan Disposition: Standard PACU
--- OUTSIDE RECORDS SUMMARY | 2025-04-10 11:44 | XMS_ITS | Clinical Summary ---
Author Organization [facility] Address [address] [place] [address] Phone Care Team Providers Care Cmm Programmer Name Role Phone Passer, Makayla MAURICE Primary Care Provider [phone] Allergies No known active allergies Medications lisinopriL [...] time each day. Active metoprolol succinate (TOPROL-XL) 50 mg 24 hr tablet Take 1 tablet (50 mg total) by mouth 1 (one) time each day. 5 Active rosuvastatin (CRESTOR) 20 mg tablet Take 1 tablet (20 mg total) by mouth 1 (one) time each day. 90 each 3 08/2603/07/20 Active Active Problems Problem Noted Date Diagnosed Date Hyperlipidemia 03/07/2025 Assessment & Plan (03/07/2025 1:50 PM EDT): Given the patient's known vascular disease with left-sided carotid stenosis plan for CEA, would aggressively treat the patient's cholesterol. Ideally, his LDL should be less than 70 though closer to 55 or less is advised there are emerging data in research. He tells me that historically he was on a statin and felt that he had intolerance. However, he states this was a very long time ago and he is very willing to go on lipid-lowering therapy. Given concurrent use of his calcium channel rona, through shared decision making, we elected to try rosuvastatin 20 mg once daily. He has established vascular disease and therefore I am starting at the moderate dose. He will update his lipid panel in about 6 to 8 weeks time, just prior to his PCP visit in mid April. He will notify me sooner if he has any intolerance to the rosuvastatin and we can adjust therapy accordingly. Primary hypertension 03/07/2025 Assessment & Plan (03/07/2025 1:49 PM EDT): The patient's blood pressure is robust in office but very well-controlled at home with readings typically in the 110 systolic or even at times lower range. He has no symptoms of dizziness or lightheadedness. Therefore, we will continue his beta-rona, calcium channel rona and MADHU inhibitor at current doses. LBBB (left bundle branch block) 06/29/2024 Overview (03/07/2025): - idiopathic - Echo 2019 without structural abnormalities and normal LVEF - Normal nuclear stress test 2021 -Updated echocardiogram 09/2024 shows normal LVEF 60-65%, no wall motion abnormalities, abnormal septal motion C/W with left bundle branch block, moderate biatrial dilatation, normal RV size, without hemodynamically significant valve disease. Assessment & Plan (03/07/2025 1:48 PM EDT): The patient has an idiopathic left bundle branch block with preserved EF on echocardiogram 09/2024. He has no symptoms of higher degree heart block. Continue periodic surveillance Assessment & Plan (06/29/2024 4:29 PM EST): Idiopathic LBBB with prior evaluation including echo and stress test not demonstrating evidence of structural heart disease. We discussed that idiopathic LBBB has a favorable prognosis and a small proportion of patients will develop additional conduction disease in their lifetime. Monitor clinically and with periodic EKGs ~ yearly. PSVT (paroxysmal supraventri cular tachycardia) (CMS/HCC V24) 06/29/2024 Overview (03/07/2025): - 05/2024 [facility] -Broke with IV metoprolol Assessment & Plan (03/07/2025 1:48 PM EDT): The patient's palpitations are well suppressed on his current dose beta-rona. He will notify me of any changes in his current condition or if he has recurrence of the palpitations. Assessment & Plan (06/29/2024 4:32 PM EST): [...] arrhythmics are needed in the near term. Encounters Date Type Department Care Team Description 03/07/2025 1:10 PM EDT Consult [facility] [address] [place] [phone] Katrina Cantu, KADE SVT (supraventricular tachycardia) (CMS/HCC V24) (Primary Dx); LBBB (left bundle branch block); Hyperlipidemia, unspecified hyperlipidemia type; PSVT (paroxysmal supraventricular tachycardia) (CMS/HCC V24); Primary hypertension; Preop cardiovascular exam 03/07/2025 Telephone [facility] [address] [place] [phone] Alyssa Piper MA 03/01/2025 Telephone [facility] [address] [facility] [address] [facility] [address] [place] [phone] Sanjeev Reese MD from Last 3 Months Social History Tobacco Use Types Packs/Day Years [...] Sign Reading Time Taken Comments Blood Pressure 160/80 03/07/2025 1:02 PM EDT Pulse 67 03/07/2025 1:02 PM EDT Temperature - - Respiratory Rate - - Oxygen Saturation 98% 03/07/2025 1:02 PM EDT Inhaled Oxygen Concentration - - Weight 65.3 kg (144 lb) 03/07/2025 1:02 PM EDT Height 162.6 cm (5' 4.02 ) 03/07/2025 1:02 PM ED T Body Mass Index 24.71 03/07/2025 1:02 PM EDT Plan of Treatment Upcoming Encounters Date Type Department Care Team (Late st Contact Info) Description 06/26/2025 1:40 PM EST Office Visit [facility] [address] [facility] [address] [place] [phone] Jose Sullivan NP [address] [place] [address] [address] [place] [phone] Health Maintenance Due Date Last Done Comments Zoster Vaccines (1 of 2) 11/18/1999 Hepatitis B Vaccines (3 of 3 - Hep B Twinrix 3-dose series) 05/14/2016 12/11/2015, 11/12/2015 Cholesterol Screening (Lipid Panel) 06/24/2024 Colorectal Cancer Screening: Colonoscopy 06/24/2024 Falls Risk Assessment 06/24/2024 Hepatitis C Screening 06/24/2024 Medicare Annual Wellness Visit 06/24/2024 Social Influencers of Health Screening 06/24/2024 Depression Screening 07/13/2024 RSV Immunization Adult Patients (1 - 1-dose 75+ series) 2024 Hypertension/CHF/CAD Annual BMP Blood Test 03/07/2025 COVID-19 Vaccine ( season) 2025 03/18/2024, 05/05/2023, 11/26/2022, Additional history exists Influenza Vaccine (#1) 2025 , 05/19/2023, 05/20/2022, [...] on patient's age to complete this topic Procedures Procedure Name Priority Date/Time Associated Diagnosis Comments ECG 12-LEAD Routine 03/07/2025 1:52 PM EDT SVT (supraventricular tachycardia) ([facility] V24) from Last 3 Months Results * ECG 12 lead (03/07/2025 1:52 PM EDT) Ventricular Rate ECG 67 BPM GEMUSE Atrial Rate 67 BPM GEMUSE P-R Interval 180 ms GEMUSE QRS Duration 140 ms GEMUSE Q-T Interval 422 ms GEMUSE QTc 445 ms GEMUSE P Wave [place] 59 degrees GEMUSE R [place] 69 degrees GEMUSE T [place] 72 degrees GEMUSE ECG Interpretation Normal sinus rhythm Left bundle branch block unchanged Confirmed by RUI JOHNSON ([id number]) on 03/08/2025 3:09:39 PM GEMUSE 03/07/2025 1:12 PM EDT 03/08/2025 3:09 PM EDT us Katrina Cantu CARPENTER/LABOR ECG ORDERABLES Edited Result - Final GEMUSE from Last 3 Months Insurance [employer] Care Teams Cmm Programmer Relationship Specialty Start Date End Date Makayla Jones PA [address] [place] [phone] PCP - General Physician [employer] Sorter 03/07/25
--- OUTSIDE RECORDS SUMMARY | 2025-04-10 11:44 | XMS_ITS | Patient Health Record ---
Author Organization [facility] Address [address] [place] [phone] Care Team Providers Care Motor Vehicle Representative Name Role Phone Nahid (RETIRED) Sonny BASHIR [...] Problem Status W/U Status Risk Notes Problem [id number] GERD without esophagitis (K21.9) Active confirmed Problem [id number] Colonoscopy refused (Z53.20) Active confirmed Plan Of Treatment Future Test Test Name Order Date UPPER GI ENDOSCOPY 04/27/2020 Insurance Providers Payer Name Payer Address Payer Phone Subscriber Number Group Number Insured Name Patient Relationship to Insured Coverage Start Date Coverage End Date [facility] [address] [place] [phone] [id number] SABAS LEE Self - patient is the insured Medical (General) History Medical History History ICD Code Gastroesophageal reflux dise ase, upper endoscopy 05/29/20, no esophagitis, no BE or HP on biopsies hypertension Colonoscopy refused by patient Surgical History Surgery Date(Month/Year) lumbar laminectomy
--- NOTE | 2025-04-10 13:34 | PHA.MEDREC ---
Addendum entered by Clemencia Luis [facility] 04/10/25 14:22: REVIEWED BY PHARMACIST Original Note: Pharmacy Consult ? Medication Reconciliation Pharmacy reviewed med rec done by nursing. Claims match; updated sigs: nurse confirmed Aspirin 81mg po QAM, Finasteride 5mg po QAM, Lisinopril 10mg po QAM and Pantoprazole 40mg po QAM, I changed them to Daily and Pantoprazole to Daily@0630.
--- NOTE | 2025-04-10 13:36 | W.PM.OPN ---
Operative Note Operative Note Date of Service: 04/10/25 Narrative: Operative note by [facility] Preoperative diagnosis:1. Left Carotid stenosis Postoperative diagnosis: Same Procedure: Left Carotid endarterectomy with patch angioplasty Surgeon:Mike Jurado M.D. Hand Bunch Maker: Jaylan MAURICE Anesthesia: General Specimens: 1 Drains: 1 Estimated blood loss: 100 mL Indications: 74-year-old gentleman with high-grade left carotid stenosis which was confirmed on CT scan. He now presents for left carotid endarterectomy The patient has signed the informed consent after reviewing risks, complications, benefits, and alternatives previously discussed with the patient. The patient was given the opportunity to ask any additional questions or voice any concerns. All questions were answered to the patient's satisfaction. Procedure in detail: Patient was taken to the operating room and placed in a supine position and prepped and draped in sterile manner with ChloraPrep. Longitudinal incision was made along the anterior border of the left sternocleidomastoid carried down through the subcutaneous fat and fascia. Hemostasis was obtained with electrocautery. The platysma muscle was then divided. The carotid sheath was identified in open. The vagus nerve, Ancef cervicalis, and hypoglossal nerves were identified and avoided. The common internal and external carotids were then freed from the surrounding tissue. At this point, 5000 units of heparin was administered and allowed to circulate for 5 minutes time to take effect. The internal, common, external carotids were clamped in that order. Once this was accomplished, we proceeded with the procedure. The carotid bulb was opened with an 11 blade and extended with Espinoza scissors through the very tight lesion into normal internal carotid artery. This was then extended down into the common carotid artery. We attempted to place a Clark shunt. Unfortunately the internal carotid was tortuous and was not able to accommodate the shunt. The decision was made to forego shunt placement. Then the plaque was sharply excised proximally and an eversion endarterectomy was performed successfully at the external. The plaque tapered nicely on to the internal and no tacking sutures were necessary. Heparinized saline was injected and no evidence of flapping or other debris was noted. The remaining carotid was examined, which showed no debris or flaps present. At this point a XenoSure patch was brought on to the field. This was anastomosed to the artery using a 6 0 Prolene in a running fashion. Once approximately 4/5 of the patch was sewn in the shunt was then removed. Prior to the last stitch the internal carotid was back bled through this. Heparinized saline was instilled into the carotid. The last stitch was tied. Hemostasis was excellent. The internal carotid was gently occluded while while of the external and internal were open in that order. Finally the internal was then opened and flow was restored to the entire system. Hemostasis was achieved with interrupted 7-0 Prolene sutures. The wound was irrigated thoroughly. We then used Vistaseal as a hemostatic agent. Deep layer was reapproximated using a 2-0 poly Sorb and finally the superficial layer with a 3-0 Polysorb. The skin was closed in a subcuticular manner. The patient awoke and neurologic status was checked and appeared to be intact. Sponge, needle and instrument counts were correct. The patient tolerated the procedure well. Returned to recovery with stable vitals. This note is constructed using voice recognition software. While every effort has been made to ensure accuracy, physical education aide errors may have been included. Thank you for allowing me to participate in the care of your patient. Yours sincerely, Mike Jurado MD, FACS, R.P.V.I.
--- NOTE | 2025-04-10 16:29 | P.HPCC_ITS ---
History of Present Illness Date of Service: 04/10/25 Chief Complaint: Elective surgery 74-year-old gentleman with past medical history of hypertension, diabetes mellitus was found to have a carotid bruit on examination by PCP. Underwent noninvasive evaluation which showed high-grade carotid stenosis, he underwent elective carotid endarterectomy uneventfully and is transferred to medical ICU for postop monitoring. Review of Systems 2 Constitutional: Constitutional: Denies body ache(s) and Denies chills Eyes: Eyes: Denies change in vision and Denies decreased night vision ENT: Reports Normal hearing present and Denies bleeding gums Cardiovascular: Cardiovascular: Denies Abdominal Cramping after Meds, Denies Abdominal Distension, Denies cool extremities and Denies chest pain Respiratory: Respiratory: Denies chest congestion and Denies cough Gastrointestinal: Gastrointestinal: Denies belching, Denies melena and Denies bloating Genitourinary: Genitourinary: Denies hematospermia and Denies change in libido Musculoskeletal: Musculoskeletal: Denies back pain, Denies myalgias and Denies atrophy Integumentary/Breasts: Skin/Breast: Denies bleeding lesions and Denies furuncle Neurologic: Reports Normal hearing present and Denies Neuro-related abnormal movements Psychiatric: Psychiatric: Denies change in libido Endocrine: Endocrine: Denies change in libido and Denies cold intolerance [facility] Past Medical History Medical History (Updated 04/10/25 @ 16:45 by Wilfrido Mckeon MD) White coat syndrome with hypertension BPH (benign prostatic hyperplasia) Renal calculi Emphysema lung SVT (supraventricular tachycardia) LBBB (left bundle branch block) Wears dentures Diabetes GERD (gastroesophageal reflux disease) HTN (hypertension) Surgical History Surgical History Hx of cystoscopy History of esophagogastroduodenoscopy (EGD) History of lumbar laminectomy Social History Social History Household Members: Spouse Housing: House Are you a primary caregivers non medical to a significant other at home: No Do you presently have visiting nurse or other home services: No Patient Tobacco Use Status: Former Tobacco user Tobacco use type: Cigarette Years Smoked: 25 e-Cigarette/Vaping Use: Never Used Use of substances other than those prescribed or required for medical reasons: No Have you been hit, kicked, punched, or otherwise hurt by someone within the past year? If so, by whom?: No Do you feel safe in your current relationship?: Yes Is there a partner from a previous relationship who is making you feel unsafe now?: No Are you made to feel afraid or neglected: No Spiritual Healthcare Practices: none per patient Spiritism Healthcare Practices: none per patient Cultural Healthcare Practices: none per patient Are you DNR?: No Advance Directives: Yes (states is primary contact & has MOLST form (is NOT a DNR)) Advance Directives Information Provided: No (advised to bring copy DOS) Advance Directives on File: Yes Advance Directives Date on File: 04/10/25 Do you have a plan to hurt others: No Plan Recently lost weight without trying: No How much weight loss: Not applicable Eating poorly because of decreased appetite: No Nutrition screen score: 0 Nutrition Risks: No Nutritional Risk Poor oral hygiene: No Meds Allergies Allergy/AdvReac Type Severity Reaction Status Date / Time Sulfa (Sulfonamide Allergy Severe Anaphylaxis Verified 04/10/25 16:15 Antibiotics) Seasonal Allergies Allergy Intermediate hayfever Verified 04/05/25 13:00 symptoms Active Medications: Current Medications Acetaminophen (Acetaminophen 325 Mg Tablet) 650 mg PO Q6H PRN PRN Reason: Pain, Mild 1-3,fever,headache Amlodipine Besylate (Amlodipine Besylate 5 Mg Tablet) 5 mg PO BEDTIME [facility]; Protocol Aspirin (Aspirin Enteric Coated 81 Mg Tablet.Dr) 81 mg PO DAILY [facility] Atorvastatin Calcium (Atorvastatin Calcium 40 Mg Tablet) 40 mg PO BEDTIME [facility] Calcium Carbonate (Calcium Carbonate 750 Mg Tab.Chew) 750 mg PO Q4H PRN PRN Reason: Heartburn Finasteride (Finasteride 5 Mg Tablet) 5 mg PO DAILY [facility] Sodium Chloride (Ns) 1,000 mls @ 80 mls/hr IVCONT .[id number] [facility] Last Admin: 04/10/25 16:02 Dose: 80 mls/hr Cefazolin Sodium/Dextrose (Ancef) 2 gm in 50 mls @ 100 mls/hr IV ONCE@1700 [facility] Stop: 04/10/25 17:29 Norepinephrine Bitartrate (Levophed) 8 mg in 250 mls @ 6.272 mls/hr IVCONT .Q24H [facility]; Protocol Last Admin: 04/10/25 14:27 Dose: 0.05 mcg/kg/min, 6.27 mls/hr Lisinopril (Lisinopril 10 Mg Tablet) 10 mg PO DAILY [facility]; Protocol Magnesium Hydroxide (Milk Of Magnesia 30 Ml Oral.Susp) 30 ml PO DAILY PRN PRN Reason: Constipation Melatonin (Melatonin 3 Mg Tablet) 6 mg PO BEDTIME PRN PRN Reason: Insomnia Metoprolol Succinate (Metoprolol Succinate Er 50 Mg Tab.Er.24h) 50 mg PO BEDTIME [facility]; Protocol Morphine Sulfate (Morphine Sulfate 2 Mg/Ml Cartridge) 2 mg IVPUSH Q4H PRN; Protocol PRN Reason: Pain, Severe (Pain Scale 7-10) Omeprazole (Omeprazole 20 Mg Capsule.Dr) 20 mg PO DAILY@629 [facility] Oxycodone HCl (Oxycodone Hcl Immed Release 5 Mg Tablet) 5 mg PO Q4H PRN PRN Reason: Pain, Moderate(Pain Scale 4-6) Sodium Chloride (0.9 % Sodium Chloride Flush 3 Ml Syringe) 3 ml IVFLUSH QSHIFT [facility] Last Admin: 04/10/25 16:26 Dose: Not Given Tamsulosin HCl (Tamsulosin Hcl 0.4 Mg Capsule) 0.4 mg PO BEDTIME [facility] Home Medications ?Medication ?Instructions ?Recorded ?Confirmed ?Last Taken ?Type amlodipine 5 mg tablet 1 tab PO BEDTIME 05/23/2005/28/20 22:00 History aspirin 81 mg tablet,delayed 81 mg PO DAILY 05/23/20 0 04/10/25 05/23/20 08:00 History release pantoprazole 40 mg tablet,delayed 1 tab PO DAILY@62905/23/20 04/10/25 05/28/20 08:00 History release finasteride 5 mg tablet 5 mg PO DAILY 01/31/2504/10 Unknown History metoprolol succinate 50 mg 50 mg PO BEDTIME 01/31/25 0 04/05/25 Unknown History tablet,extended release 24 hr lisinopril 10 mg tablet 10 mg PO DAILY 02/21/2503/14 Unknown History tamsulosin 0.4 mg capsule 0.4 mg PO BEDTIME 02/21/25 0 04/05/25 Unknown History rosuvastatin 20 mg tablet 20 mg PO BEDTIME 04/04/25 Unknown History Physical Exam 2 Vital Signs: Vital Signs: Last Vital Signs Temp 97.5 F 04/10/25 15:05 Pulse 74 04/10/25 16:00 Resp 15 04/10/25 16:00 BP 117/57 L 04/10/25 16:00 Pulse Ox 91 L 04/10/25 16:00 O2 Del Method Room Air 04/10/25 16:00 O2 Flow Rate 2 04/10/25 15:05 BMI result Body Mass Index 25.3 General: acute distress, ill appearing and tired appearing Nutritional Appearance: well nourished and overweight Eyes: appearance normal, both eyes and all related structures; Alignment and Position: alignment normal and position normal Neck: No lymphadenopathy, no thyromegaly Resp: bilateral air entry equal, occasional added sounds present Cardio: Regular rate, regular rhythm; Heart sounds: S1 normal heart sound present and S2 normal heart sound present GI: soft, nontender, no guarding, no hepatosplenomegaly : bladder normal to inspection, bladder normal to palpation, no renal angle tenderness Skin: no rashes or lesions noted and elasticity normal Neuro: oriented to person, oriented to place, oriented to time and moves all extremities Neuro: Cranial nerves: Yes Normal hearing present Results Labs 04/05/25 14:03 04/10/25 10:18 Labs: Laboratory Results - last 24 hr 04/10/25 04/10/25 10:18 10:30 Anion Gap 11 L POC Glucose 119 H Assessment and Plan (1) Left carotid stenosis: Status: Acute (2) Cardiogenic shock: Status: Acute Plan Carotid artery stenosis: Found to have carotid bruit on physical examination, validated by carotid artery Doppler. Underwent successful left carotid endarterectomy this morning without any complication. We will closely monitor him in the ICU for any signs of dysphagia or dyspnea or hematoma formation Aspirin to be restarted as per vascular surgery Hypertension: Currently hypotensive possibly secondary to medications/anesthesia Currently on Levophed for vasopressor support, titrate to keep map above 65 mm Hg on 4 antihypertensives at home including amlodipine, metoprolol, lisinopril and tamsulosin. Diabetes mellitus: We will do sliding scale insulin as needed
[2025-04-10 20:52] LABS: MANUAL DIFF FLAG NO
[2025-04-10 20:55] LABS: Hematocrit 38.9 % (42.0-52.0); Hemoglobin 13.3 g/dl (14.0-18.0); Imm Gran Abs Auto 0.05 X10*3/uL (0.00-0.03); Imm Gran Pct Auto 0.5 % (0.0-0.4); Lymphocytes Absolute Auto 0.8 X10*3/uL (1.2-4.9); Mean Corpuscular HGB Conc 34.2 g/dl (31.0-36.0); Mean Corpuscular Hemoglobin 28.8 pg (27.0-33.0); Mean Corpuscular Volume 84.2 fL (80.0-98.0); NRBC Abs Auto 0.000 X10*3/uL (0.0-0.012); NRBC Pct Auto 0.0 /100WBC (0.0-0.2); Platelet Count 166 X10*3/uL (160-400); Red Blood Count 4.62 X10*6/uL (4.60-5.80); White Blood Count 10.3 X10*3/uL (4.8-10.8)
[2025-04-10 21:11] LABS: Alanine Aminotransferase 13 U/L (0-40); Albumin Level 3.6 g/dL (3.5-5.0); Alkaline Phosphatase 53 U/L (39-117); Anion Gap 15 (12-20); Aspartate Amino Transferase 24 U/L (5-37); Blood Urea Nitrogen 21 mg/dL (9-16); Calcium 8.6 mg/dL (8.4-10.2); Carbon Dioxide 21 mmol/L (22-29); Chloride 108 mmol/L (96-108); Creatinine Clr Calc Pharmacy 36.1; Estimated Glomerular Filt Rate 46; Potassium 4.6 mmol/L (3.3-5.1); Sodium 139 mmol/L (135-145); Total Protein 6.0 g/dL (6.5-8.0)
[2025-04-10] MEDS: Albumin Human 25 % 100 ML 133.33 ML IV ×2 (21:54→22:40)
[2025-04-10] MEDS: oxyCODONE HCl Immed Release 5 MG TABLET PO (21:58)
[2025-04-11] VITALS (16 sets, daily range): BP systolic 99–131; BP diastolic 44–69; PULSE 67–88; RESP 8–21; TEMP 36.1–37.1; O2SAT 90–98
--- NOTE | 2025-04-11 02:31 | PC.NURSE ---
Pt POD #1 s/p L CEA. On initial assessment- pt A&Ox4, calm/cooperative, DIAZ with equal strength bilaterally. Medicated for pain per MAR. NSR with 1? AVB and BBB on tele; HR 60?90s. A-line to L radial correlating well with NIBP. Levophed infusion titrated off. Albumin x2 bags given IV. IVF held per [facility] [place] due to fine crackles auscultated in RLL; pt denies SOB/dyspnea. SpO2 >92% on room air. Encouraged TCDB. Tolerating PO intake. Indwelling urinary catheter in place; UOP as charted. Skin intact- surgical incision WNL. Pt educated and verbalized understanding of plan of care. Bed locked in lowest position, alarm on, call temple within reach. See EMR/flowsheet for additional details.
[2025-04-11 05:58] LABS: MANUAL DIFF FLAG NO
[2025-04-11 06:17] LABS: Anion Gap 10 (12-20); Blood Urea Nitrogen 20 mg/dL (9-16); Calcium 8.7 mg/dL (8.4-10.2); Carbon Dioxide 26 mmol/L (22-29); Chloride 110 mmol/L (96-108); Creatinine Clr Calc Pharmacy 40.7; Estimated Glomerular Filt Rate 53; Magnesium 2.0 mg/dL (1.6-2.6); Potassium 4.1 mmol/L (3.3-5.1); Sodium 142 mmol/L (135-145)
[2025-04-11 06:32] LABS: Hematocrit 34.4 % (42.0-52.0); Hemoglobin 11.5 g/dl (14.0-18.0); Imm Gran Abs Auto 0.03 X10*3/uL (0.00-0.03); Imm Gran Pct Auto 0.3 % (0.0-0.4); Lymphocytes Absolute Auto 0.9 X10*3/uL (1.2-4.9); Mean Corpuscular HGB Conc 33.4 g/dl (31.0-36.0); Mean Corpuscular Hemoglobin 28.8 pg (27.0-33.0); Mean Corpuscular Volume 86.0 fL (80.0-98.0); NRBC Abs Auto 0.000 X10*3/uL (0.0-0.012); NRBC Pct Auto 0.0 /100WBC (0.0-0.2); Platelet Count 130 X10*3/uL (160-400); Red Blood Count 4.00 X10*6/uL (4.60-5.80); White Blood Count 10.1 X10*3/uL (4.8-10.8)
[2025-04-11] MEDS: oxyCODONE HCl Immed Release 5 MG TABLET PO (07:33)
[2025-04-11] MEDS: 0.9 % Sodium Chloride Flush 3 ML SYRINGE IVFLUSH (07:36)
[2025-04-11] MEDS: Aspirin Enteric Coated 81 MG TABLET.DR PO (08:23)
--- NOTE | 2025-04-11 08:56 | P.PNCC_ITS ---
Subjective Subjective Date of Service: 04/11/25 Interval History: Doing well, no new complaints. surgical site looks okay Critical Care Time (minutes): 35 Physical Exam 2 Vital Signs: Vital Signs: Last Vital Signs Temp 97.2 F 04/11/25 08:00 Pulse 87 04/11/25 08:41 Resp 18 04/11/25 08:00 BP 128/59 L 04/11/25 08:41 Pulse Ox 91 L 04/11/25 08:00 O2 Del Method Room Air 04/11/25 08:00 O2 Flow Rate 2 04/10/25 15:05 BMI result Body Mass Index 25.3 General: Elderly male in no distress Nutritional Appearance: well nourished and overweight Eyes: appearance normal, both eyes and all related structures; Alignment and Position: alignment normal and position normal Neck: No lymphadenopathy, no thyromegaly Resp: bilateral air entry equal, occasional added sounds present Cardio: Regular rate, regular rhythm; Heart sounds: S1 normal heart sound present and S2 normal heart sound present GI: soft, nontender, no guarding, no hepatosplenomegaly : bladder normal to inspection, bladder normal to palpation, no renal angle tenderness Skin: no rashes or lesions noted and elasticity normal Neuro: oriented to person, oriented to place, oriented to time and moves all extremities Objective Data Labs 04/11/25 05:03 04/11/25 05:03 Labs: Laboratory Results - last 24 hr 04/10/25 04/10/25 04/10/25 10:18 10:30 20:48 WBC 10.3 RBC 4.62 Hgb 13.3 L Hct 38.9 L MCV 84.2 MCH 28.8 MCHC 34.2 RDW 13.2 Plt Count 166 MPV 10.7 Immature Gran % (Auto) 0.5 H Neut % (Auto) 88.5 H Lymph % (Auto) 7.6 L [place] % (Auto) 3.3 Eos % (Auto) 0.0 Baso % (Auto) 0.1 Lymph # (Auto) 0.8 L [place] # (Auto) 0.3 Eos # (Auto) 0.0 Baso # (Auto) 0.0 Abs Immat Gran (auto) 0.05 H Absolute Neuts (auto) 9.1 H Absolute Nucleated RBC 0.000 Nucleated RBC % (auto) 0.0 Sodium 141 139 Potassium 3.8 D 4.6 D Chloride 106 108 Carbon Dioxide 28 21 L Anion Gap 11 L 15 BUN 21 H Creatinine 1.48 H Estim Creat Clear Calc 36.1 Estimated GFR 46 POC Glucose 119 H Random Glucose 261 H Calcium 8.6 D Phosphorus Magnesium Total Bilirubin 0.3 AST 24 ALT 13 Alkaline Phosphatase 53 Total Protein 6.0 L Albumin 3.6 04/11/25 05:03 WBC 10.1 RBC 4.00 L Hgb 11.5 L Hct 34.4 L MCV 86.0 MCH 28.8 MCHC 33.4 RDW 13.3 Plt Count 130 L MPV 11.6 Immature Gran % (Auto) 0.3 Neut % (Auto) 81.6 H Lymph % (Auto) 9.2 L [place] % (Auto) 8.6 Eos % (Auto) 0.1 Baso % (Auto) 0.2 Lymph # (Auto) 0.9 L [place] # (Auto) 0.9 Eos # (Auto) 0.0 Baso # (Auto) 0.0 Abs Immat Gran (auto) 0.03 Absolute Neuts (auto) 8.2 Absolute Nucleated RBC 0.000 Nucleated RBC % (auto) 0.0 Sodium 142 Potassium 4.1 Chloride 110 H Carbon Dioxide 26 Anion Gap 10 L BUN 20 H Creatinine 1.31 Estim Creat Clear Calc 40.7 Estimated GFR 53 POC Glucose Random Glucose 124 H Calcium 8.7 Phosphorus 3.5 Magnesium 2.0 Total Bilirubin AST ALT Alkaline Phosphatase Total Protein Albumin Progress Note: A&P Assessment and plan (1) Cardiogenic shock: Status: Acute (2) Carotid stenosis, bilateral: Status: Acute (3) Left carotid stenosis: Status: Acute Plan Carotid artery stenosis: Found to have carotid bruit on physical examination, validated by carotid artery Doppler. Underwent successful left carotid endarterectomy on 04/10/2025 without any complication. Continue aspirin and statin as per vascular surgery Hypertension: Currently hypotensive possibly secondary to medications/anesthesia He was on Levophed for vasopressor support which was titrated off last night on 4 antihypertensives at home including amlodipine, metoprolol, lisinopril and tamsulosin which we are withholding given his soft blood pressures. Diabetes mellitus: We will do sliding scale insulin as needed Quality Stroke Does the patient have a stroke diagnosis?: No VTE Prior VTE?: No VTE Risk Level:: Medical - moderate - high VTE Device Contraindication: N/A - Device Ordered VTE Drug Contraindication: N/A - Med Ordered
--- NOTE | 2025-04-11 09:09 | HO.POSTANES ---
Post Anesthesia Evaluation Post Anesthesia Evaluation Date of Service: 04/11/25 Vital Signs: Vital Signs Temp Pulse Pulse Resp BP BP Pulse Ox 04/11/25 08:41 87 128/59 L 04/11/25 08:00 97.2 F 70 18 125/69 91 L 04/11/25 07:26 78 131/56 L 04/11/25 07:00 75 18 128/61 90 L 04/11/25 06:00 75 14 113/51 L 91 L 04/11/25 05:00 98.1 F 75 15 110/49 L 93 04/11/25 04:00 75 13 104/56 L 93 04/11/25 04:00 75 112/50 L 04/11/25 03:00 72 15 104/46 L 92 04/11/25 01:59 88 13 101/47 L 92 04/11/25 01:00 81 8 L 103/46 L 92 04/11/25 00:00 98.7 F 79 15 114/50 L 90 L 04/10/25 23:53 75 111/50 L 04/10/25 23:00 89 13 111/50 L 92 04/10/25 22:00 75 157/69 H 04/10/25 21:58 73 15 138/57 L 92 04/10/25 21:30 80 145/65 H O2 Del Method 04/11/25 08:41 04/11/25 08:00 Room Air 04/11/25 07:26 04/11/25 07:00 Room Air 04/11/25 06:00 Room Air 04/11/25 05:00 Room Air 04/11/25 04:00 Room Air 04/11/25 04:00 04/11/25 03:00 Room Air 04/11/25 01:59 Room Air 04/11/25 01:00 Room Air 04/11/25 00:00 Room Air 04/10/25 23:53 04/10/25 23:00 Nasal Cannula 04/10/25 22:00 04/10/25 21:58 Room Air 04/10/25 21:30 Anesthesia: General Mental Status: Awake Pain Control: Satisfactory Nausea/Vomiting: None Hydration: Adequate Anesthesia-Related Issues: No Anes. Related Issues
--- NOTE | 2025-04-11 10:48 | MHC.CM.PN ---
IMM DELIVERED PT LIVES WITH SPOUSE AND IS FUNCTIONALLY INDEPENDENT. +DRIVES. NO SERVICES OR DME. +HCP ON FILE AND VERIFIED. PCP IZABELA HOYT NP DP: HOME , NO SERVICES IS ANTICIPATED. PT'S SPOUSE WILL TRANSPORT HOME. CM WILL CONTINUE TO FOLLOW FOR ANY CHANGE TO DC PLAN/NEEDS.
--- NOTE | 2025-04-11 13:51 | PM.DS ---
DS: Providers Provider Date of Service: 04/11/25 Date of admission: 04/10/25 10:29 Date of discharge: 04/11/25 Primary care physician: Josseline Cates MD DS: Diagnosis Discharge Diagnosis (1) Cardiogenic shock: Status: Acute (2) Carotid stenosis, bilateral: Status: Acute (3) Left carotid stenosis: Status: Acute DS: Summary Hospital Course Hospital Course: 74-year-old gentleman underwent left carotid endarterectomy on 04/10/2025. Postoperatively no significant issues and was neurologically intact. He did have some episodes hypotension but was easily controlled. Postop day 1 hemodynamically stable tolerating a regular diet neurologically intact. He was subsequently discharged. Status at Discharge Functional status at discharge: independent ambulation Overall status at discharge: patient is back to baseline Time Attestation Discharge Coordination Time (in mins): 35 Quality: Safe Use of Opioids Does Pt have an Active Cancer Diagnosis on the Problem List?: No Quality: Stroke Does the patient have a stroke diagnosis?: No Physical Exam Vital Signs: Vital Signs: Last Vital Signs Temp 97.0 F 04/11/25 12:00 Pulse 81 04/11/25 13:00 Resp 21 H 04/11/25 13:00 BP 124/46 L 04/11/25 13:00 Pulse Ox 95 04/11/25 13:00 O2 Del Method Room Air 04/11/25 13:00 O2 Flow Rate 2 04/10/25 15:05 BMI result Body Mass Index 25.3 Const: General: cooperative, healthy appearing and comfortable Orientation/consciousness: oriented to person, oriented to place and oriented to time HEENT: Head: Yes normal to inspection Neck: Neck: Yes normal visual inspection Carotids: no bruits Chest: Chest palpation & inspection: normal inspection of the chest Resp: Effort & Inspection: normal respiratory effort and able to speak in complete sentences Auscultation: clear to auscultation bilaterally, no crackles, no rales, no rhonchi and no wheezes Cardio: Rate: regular rate Rhythm: regular rhythm Heart sounds: S1 normal heart sound present and S2 normal heart sound present Bruits: no carotid bruits Peripheral pulses: Peripheral pulses 2+ throughout GI: Inspection: Yes normal to inspection Skin: Other: Left neck incision healing well Wounds: no wounds Hair: normal Neuro: General: oriented to person, oriented to place and oriented to time Cranial nerves: Yes CN's II-XII intact bilaterally and Yes Normal hearing present Cognition (Neuro): normal cognition Motor exam (neuro): 5/5 motor strength present throughout Extrem: Other: venous exam: No significant superficial varicosities or spider telangiectasias, minimal edema General: No clubbing, No cyanosis and No edema Psych: Appearance: grossly normal Mental Status: mental status grossly normal Speech and movement: Normal speech and movement present DS: Data Data Completed and Pending Pending studies at discharge: Pending at discharge 04/10/25 12:22 Surgical [PTH] Routine Labs on day of discharge: Laboratory Results - last 24 hr 04/10/25 04/11/25 20:48 05:03 WBC 10.3 10.1 RBC 4.62 4.00 L Hgb 13.3 L 11.5 L Hct 38.9 L 34.4 L MCV 84.2 86.0 MCH 28.8 28.8 MCHC 34.2 33.4 RDW 13.2 13.3 Plt Count 166 130 L MPV 10.7 11.6 Immature Gran % (Auto) 0.5 H 0.3 Neut % (Auto) 88.5 H 81.6 H Lymph % (Auto) 7.6 L 9.2 L [place] % (Auto) 3.3 8.6 Eos % (Auto) 0.0 0.1 Baso % (Auto) 0.1 0.2 Lymph # (Auto) 0.8 L 0.9 L [place] # (Auto) 0.3 0.9 Eos # (Auto) 0.0 0.0 Baso # (Auto) 0.0 0.0 Abs Immat Gran (auto) 0.05 H 0.03 Absolute Neuts (auto) 9.1 H 8.2 Absolute Nucleated RBC 0.000 0.000 Nucleated RBC % (auto) 0.0 0.0 Sodium 139 142 Potassium 4.6 D 4.1 Chloride 108 110 H Carbon Dioxide 21 L 26 Anion Gap 15 10 L BUN 21 H 20 H Creatinine 1.48 H 1.31 Estim Creat Clear Calc 36.1 40.7 Estimated GFR 46 53 Random Glucose 261 H 124 H Calcium 8.6 D 8.7 Phosphorus 3.5 Magnesium 2.0 Total Bilirubin 0.3 AST 24 ALT 13 Alkaline Phosphatase 53 Total Protein 6.0 L Albumin 3.6 Discharge Plan Discharge Anticipated Discharge Date/Time: 04/11/25 13:47 Patient Disposition: Home, Self-Care Discharge Diagnosis: Status post left carotid endarterectomy Referrals: Josseline Cates MD [Primary Care Provider, Endocrinology] - 1 Week Discharge Medications: New oxycodone-acetaminophen [Endocet] 5-325 mg tablet 1 tab PO TID PRN (Reason: pain) Qty: 10 0RF Rx Instructions: Partial Fill upon patient request. Continued amlodipine 5 mg tablet 1 tab PO BEDTIME aspirin 81 mg Tablet,Delayed Release (Dr/Ec) 81 mg PO DAILY pantoprazole 40 mg tablet,delayed release (DR/EC) 1 tab PO DAILY@0630 rosuvastatin 20 mg tablet 20 mg PO BEDTIME tamsulosin 0.4 mg capsule 0.4 mg PO BEDTIME lisinopril 10 mg tablet 10 mg PO DAILY metoprolol succinate 50 mg tablet extended release 24 hr 50 mg PO BEDTIME finasteride 5 mg tablet 5 mg PO DAILY Discharge Orders: Discharge Order (Routine); Ordered 04/11/25 Ordered By: Mike Jurado Diet: Advance to usual diet Activity on Discharge: As tolerated Stand Alone Forms: Patient Portal Discharge page Print Language: Israeli Activity Restrictions/Additional Instructions: Steri-Strips was used and you may shower as early as tomorrow. Take it easy today and you may ambulate around the house. Within 24 hours you can resume normal activity You may climb a flight of stairs as tolerated See Dr. Jurado in follow-up in approximately 2 weeks time. You should already have an appointment if not please call my office at [phone] Please use Tylenol as needed for pain and if needed prescription Endocet If you notice excessive bleeding from the neck please immediately call my office or return to the emergency room. Care Plan Goals: Carotid surveillance Health Concerns: Bilateral carotid stenosis Plan of Treatment: Status post left carotid endarterectomy Assessment: Status post left carotid endarterectomy
--- NOTE | 2025-04-11 14:00 | MHC.CM.PN ---
DP: PT HAS BEEN MEDICALLY CLEARED FOR DC HOME, NO SERVICES. SPOUSE WILL TRANSPORT.
== END 2025-04-11 14:41 | disposition home or self-care (01) | DRG 39 ==
LOC: HO.SSSA 10:30 → HO.ICU 13:50
PROVIDERS: Nurse Practitioner; Physician Assistant Medical; Admitting Provider Surgery Vascular Surgery; PCP Physician Assistant Medical; Visit Provider Surgery Vascular Surgery
PROC: 03CJ0ZZ Extirpation of Matter from Left Common Carotid Artery, Open Approach (ICD-10-PCS; CPT 35301; principal; 2025-04-10 11:30)
DX: I65.22 Occlusion and stenosis of left carotid artery (principal); I10 Essential (primary) hypertension; E11.9 Type 2 diabetes mellitus without complications; I95.2 Hypotension due to drugs; T41.205A Adverse effect of unspecified general anesthetics, initial encounter; Z87.891 Personal history of nicotine dependence; Z79.82 Long term (current) use of aspirin; Z79.899 Other long term (current) drug therapy
CPT/HCPCS: 36415; 80048; 80051; 80053; 82947; 83735; 84100; 85025; 85027; 85610; 85730; 86850; 86900; 86901; A4649; C1768; C9250; J0131; J0690; J1100; J1644; J2003; J2305; J2371; J2405; J2598; J2704; J2795; J3010; P9047

== ENCOUNTER → 2025-04-10 10:29 | Outpatient (BNV) | payer MEDICARE, SELFPAY | PROVIDERS: Admitting Provider Surgery Vascular Surgery; PCP Internal Medicine; Visit Provider Internal Medicine Critical Care Medicine | DX: R57.0 Cardiogenic shock (principal); I65.23 Occlusion and stenosis of bilateral carotid arteries; I65.22 Occlusion and stenosis of left carotid artery | CPT/HCPCS: 99291 ==

== ENCOUNTER → 2025-04-10 10:29 | Outpatient (BNV) | payer MEDICARE, SELFPAY | PROVIDERS: Admitting Provider Surgery Vascular Surgery; PCP Internal Medicine; Visit Provider Surgery Vascular Surgery | DX: I65.22 Occlusion and stenosis of left carotid artery (principal) | CPT/HCPCS: 35301; 99239 ==

== ENCOUNTER 2025-04-25 09:07 | Outpatient (AMB) | payer MEDICARE, SELFPAY ==
--- NOTE | 2025-04-25 09:21 | A.OFFVIS_ITS ---
Intake Visit Reasons: 2 week follow up L CEA 04/10/25 Intake Note: 2 week follow up Left CEA 04/10/25, no complaints, just numbness over treated area [employer] Utility Worker Required: No Accompanied by: Self / Same As Patient Allergies Sulfa (Sulfonamide Antibiotics) Allergy (Severe, Verified 04/25/25 09:21) Anaphylaxis Seasonal Allergies Allergy (Intermediate, Verified 04/25/25 09:21) hayfever symptoms HPI HPI 2 week follow up L CEA 04/10/25: Details: The patient is a 74-year-old male presenting for follow-up after left carotid endarterectomy. The procedure was performed on April 10, 2025, and the patient reports doing fairly well with no interval issues. The incision site on the neck has healed well, with the patient experiencing some numbness, which is expected to improve over the next few months. The patient reports a raised lump at the incision site, which is anticipated to soften over time. He appears to be doing well postoperatively and now presents for routine follow- up [facility] Medical History White coat syndrome with hypertension BPH (benign prostatic hyperplasia) Renal calculi Emphysema lung SVT (supraventricular tachycardia) LBBB (left bundle branch block) Wears dentures Diabetes GERD (gastroesophageal reflux disease) HTN (hypertension) Surgical History Hx of cystoscopy History of esophagogastroduodenoscopy (EGD) History of lumbar laminectomy Social History Household Members: Spouse Housing: House Are you a primary intensive care ambulance paramedic to a significant other at home: No Do you presently have visiting nurse or other home services: No Patient Tobacco Use Status: Former Tobacco user Tobacco use type: Cigarette Years Smoked: 25 e-Cigarette/Vaping Use: Never Used Advance Directives Date on File: 04/10/25 service: No Review of Systems Const All systems reviewed & are unremarkable except as noted in HPI and below Reports no additional complaints ENT Reports Normal hearing present Card Denies chest pain, Denies chest pain at rest, Denies chest pain with activity and Denies pedal edema Resp Denies cough GI Denies abdominal pain Musc Denies abnormal gait, Denies muscle cramps and Denies radiating pain into limb Skin/Breast Denies skin ulcer and Denies wounds Neuro Reports Normal hearing present and Denies abnormal gait Psych Reports no additional complaints Physical Exam Const General: cooperative, healthy appearing and comfortable Orientation/consciousness: oriented to person, oriented to place and oriented to time HEENT Head: Yes normal to inspection Neck Neck: Yes normal visual inspection Carotids: no bruits Chest Chest palpation & inspection: normal inspection of the chest Resp Effort & Inspection: normal respiratory effort and able to speak in complete sentences Auscultation: clear to auscultation bilaterally, no crackles, no rales, no rhonchi and no wheezes Cardio Rate: regular rate Rhythm: regular rhythm Heart sounds: S1 normal heart sound present and S2 normal heart sound present Bruits: no carotid bruits Peripheral pulses: Peripheral pulses 2+ throughout GI Inspection: Yes normal to inspection Skin Other: Left neck incision well healed Wounds: no wounds Hair: normal Neuro General: oriented to person, oriented to place and oriented to time Cranial nerves: Yes CN's II-XII intact bilaterally and Yes Normal hearing prese nt Cognition (Neuro): normal cognition Motor exam (neuro): 5/5 motor strength present throughout Extrem Other: venous exam: No significant superficial varicosities or spider telangiectasias, minimal edema General: No clubbing, No cyanosis and No edema Psych Appearance: grossly normal Mental Status: mental status grossly normal Speech and movement: Normal speech and movement present Assessment & Plan Assessment & Plan (1) Carotid stenosis, bilateral: Comment: 04/10/2025 - left carotid endarterectomy Code(s): I65.23 - Occlusion and stenosis of bilateral carotid arteries Category: Medical Plan: I discussed with the patient the importance of following the surveillance protocol with scheduled ultrasounds to monitor the status post left carotid endarterectomy. He will be scheduled for a three-month carotid surveillance. We also talked about the expected improvement in numbness at the incision site and the need to report any changes in symptoms. Plan Patient was informed and verbally consented to the use of an ambient scribe for clinic note documentation during this visit. Orders: Orders US carotid duplex BI 3 Months I65.23 - Occlusion and stenosis of bilateral carotid arteries Patient Instructions: - Follow the surveillance protocol with scheduled ultrasounds at three months, six months, and annually. - Monitor for any changes in symptoms and report them promptly. - Expect improvement in numbness at the incision site over the next few months. Coding Level of Care Code Global (62479) Diagnoses Carotid stenosis, bilateral I65.23
--- OUTSIDE RECORDS SUMMARY | 2025-04-25 09:53 | XMS_ITS | Patient Health Record ---
Author Organization [facility] Address [address] [place] [phone] Care Team Providers Care Contact Center Rep Name Role Phone Nahid (RETIRED) Sonny BASHIR [...] MG TAKE 1 TABLET BY MOUTH EVERY DAY; Duration: 90 Needs f/u office visit. Active Famotidine [...] Problem Status W/U Status Risk Notes Problem Gastroesophageal reflux disease (010242425) GERD without esophagitis (K21.9) Active confirmed Problem Colonoscopy refused ([id number]) Colonoscopy refused (Z53.20) Active confirmed Plan Of Treatment Future Test Test Name Order Date UPPER GI ENDOSCOPY 04/27/2020 Insurance Providers Payer Name Payer Address Payer Phone Subscriber Number Group Number Insured Name Patient Relationship to Insured Coverage Start Date Coverage End Date [facility] [address] [place] [address] [id number] SABAS LEE Self - patient is the insured Medical (General) History Medical History History ICD Code Gastroesophageal reflux dise ase, upper endoscopy 05/29/20, no esophagitis, no BE or HP on biopsies hypertension Colonoscopy refused by patient Surgical History Surgery Date(Month/Year) lumbar laminectomy
--- OUTSIDE RECORDS SUMMARY | 2025-04-25 09:53 | XMS_ITS | Clinical Summary ---
Author Organization [facility] Address [address] [place] [address] Phone Care Team Providers Care Facility Maintenance Technician Name Role Phone Passer, Makayla MAURICE Primary Care Provider [phone] Allergies No known active allergies Medications lisinopriL [...] (CMS/HCC V24) 06/29/2024 Overview (03/07/2025): - 05/[address] [facility] -Broke with IV metoprolol Assessment & [...] Team Description 03/07/2025 1:10 PM EDT Consult [facility] [address] [place] [phone] Katrina Cantu, KADE SVT (supraventricular tachycardia) (CMS/HCC V24) (Primary Dx); LBBB (left bundle branch block); Hyperlipidemia, unspecified hyperlipidemia type; PSVT (paroxysmal supraventricular tachycardia) (CMS/HCC V24); Primary hypertension; Preop cardiovascular exam 03/07/2025 Telephone [facility] [address] [place] [phone] Alyssa Piper MA 03/01/2025 Telephone [facility] [address] [place] [address] Sanjeev Reese MD from Last 3 Months [...] Description 06/26/2025 1:40 PM EST Office Visit [facility] [address] [place] [phone] Jose Sullivan NP [address] [place] [address] [address] [place] [phone] Health Maintenance Due Date Last Done Comments Colorectal Cancer Screening: Colonoscopy 1950 Zoster Vaccines (1 of 2) 11/18/1999 Hepatitis B Vaccines (3 of 3 - Hep B Twinrix 3-dose series) 05/14/2016 12/11/2015, 11/12/2015 Cholesterol Screening (Lipid Panel) 06/24/2024 Falls Risk Assessment 06/24/2024 Hepatitis C [...] 03/07/2025 1:52 PM EDT SVT (supraventricular tachycardia) ([facility] V24) from Last 3 Months Results * ECG 12 lead (03/07/2025 1:52 PM EDT) Ventricular Rate ECG 67 BPM GEMUSE Atrial Rate 67 BPM GEMUSE P-R Interval 180 ms GEMUSE QRS Duration 140 ms GEMUSE Q-T Interval 422 ms GEMUSE QTc 445 ms GEMUSE P Wave [place] 59 degrees GEMUSE R [place] 69 degrees GEMUSE T [place] 72 degrees GEMUSE ECG Interpretation Normal sinus rhythm Left bundle branch block unchanged Confirmed by RUI JOHNSON ([id number]) on 03/08/2025 3:09:39 PM GEMUSE 03/07/2025 1:12 PM EDT 03/08/2025 3:09 PM EDT us Katrina Cantu MANAGEMENT SCIENTIST ECG ORDERABLES Edited Result - Final GEMUSE from Last 3 Months Insurance [employer] Care Teams Facility Maintenance Technician Relationship Specialty Start Date End Date Makayla Jones PA [address] [place] [phone] PCP - General Physician Bull Gang Supervisor 03/07/25
== END 2025-04-25 09:36 | disposition home or self-care (01) ==
LOC: HO.HVS 09:07
PROVIDERS: PCP Physician Assistant Medical; Visit Provider Surgery Vascular Surgery
DX: I65.23 Occlusion and stenosis of bilateral carotid arteries (principal)
CPT/HCPCS: 99024

== ENCOUNTER → 2025-04-25 09:07 | Outpatient (BNVA) | payer MEDICARE, SELFPAY | PROVIDERS: PCP Physician Assistant Medical; Visit Provider Surgery Vascular Surgery | DX: I65.23 Occlusion and stenosis of bilateral carotid arteries (principal) | CPT/HCPCS: 99212 ==

== ENCOUNTER 2025-05-04 14:08 | Outpatient (AMB) | payer MEDICARE, SELFPAY ==
--- NOTE | 2025-05-04 14:19 | A.OFFPC_ITS ---
Vital Signs 05/04/25 14:32 Height 5 ft 4 in Weight 143 lb 2 oz BMI 24.6 BP 128/80 Blood Pressure Location Lt brachial Position Sitting Pulse 71 Pulse Source Pulse Oximeter Temp 97.2 F Temp Source Temporal Artery Scan Pulse Oximetry (%) 98 Oxygen Delivery Method Room Air Intake Visit Reasons: Routine / Dr Whitfield Consumer Experience Consultant Required: No Accompanied by: Spouse Allergies Sulfa (Sulfonamide Antibiotics) Allergy (Severe, Verified 05/04/25 14:19) Anaphylaxis Seasonal Allergies Allergy (Intermediate, Verified 05/04/25 14:19) hayfever symptoms Medication List - Last Reconciled 05/21/25 by KAYLENE Lopez amlodipine 5 mg PO BEDTIME aspirin 81 mg PO DAILY finasteride 5 mg PO DAILY lisinopril 10 mg PO DAILY metoprolol succinate ER 50 mg PO BEDTIME multivitamin 1 tab PO DAILY pantoprazole 40 mg PO DAILY@0630 rosuvastatin 20 mg PO BEDTIME tamsulosin 0.4 mg PO BEDTIME Tobacco use date assessed: 05/04/25 Fall risk assessment: No Falls in past year Last assessed Fall Risk: 05/04/25 Dental Screening Dental Screen Date: 05/04/25 Did you have a dental visit in the last 12 months?: No Did you have a dental problem in the last 6 months where you did not have access to dental care?: No HPI HPI Comments History of Present Illness Details The patient is a 74-year-old male with DM, HTN, GERD< BPH, HLD, CKD and carotid stenosis with left carotid endarterectomy presenting to establish care and for follow-up and management of chronic conditions. The patient has a history of diabetes mellitus, currently not requiring medication, with the last recorded HbA1c being 5.6%. Blood pressure is well- controlled with amlodipine, lisinopril, and metoprolol, which is also prescribed for supraventricular tachycardia (SVT). His BP today was 128/80. The patient reports no recent episodes of SVT since starting metoprolol and follows up with a clinical immunologist, with the next appointment scheduled for June. He recently received cardiology clearance for surgery. The patient is on pantoprazole for gastroesophageal reflux disease (GERD) and takes tamsulosin and finasteride for benign prostatic hyperplasia (BPH). Ro suvastatin was initiated preoperatively to manage hyperlipidemia, although recent cholesterol levels are unavailable. A recent lab test indicated slight anemia, which was not significantly low, and the patient is unaware of any longstanding anemia. Chronic kidney disease has been stable for years without nephrology consultation, and kidney function remains slightly impaired. The patient was diagnosed with age-related macular degeneration (AMD) last week and is scheduled for an injection in one eye. Medical History: - Diabetes mellitus - Supraventricular tachycardia (SVT) - Gastroesophageal reflux disease (GERD) - Benign prostatic hyperplasia (BPH) - Hyperlipidemia - Anemia - Chronic kidney disease - Age-related macular degeneration (AMD) Surgical History: - Recent surgery (details unspecified) Medications: - Amlodipine for hypertension - Lisinopril for hypertension - Metoprolol for supraventricular tachyc ardia - Pantoprazole for gastroesophageal refl ux disease - Tamsulosin for benign prostatic hyperp lasia - Finasteride for benign prostatic hyper plasia - Rosuvastatin for hyperlipidemia - Aspirin (indication not specified) Patient was informed and verbally consented to the use of an ambient scribe for clinic note documentation during this visit. [facility] Medical History (Updated 05/21/25 @ 15:34 by KAYLENE Lopez) Anemia BPH (benign prostatic hyperplasia) CKD (chronic kidney disease) Diabetes Emphysema lung GERD (gastroesophageal reflux disease) HTN (hypertension) LBBB (left bundle branch block) Macular degeneration Renal calculi SVT (supraventricular tachycardia) Wears dentures White coat syndrome with hypertension Surgical History History of esophagogastroduodenoscopy (EGD) History of lumbar laminectomy Hx of cystoscopy Family History (Updated 05/04/25 @ 14:36 by Enma Purdy MA) Mother No problems noted. Father No problems noted. Social History Household Members: Spouse Housing: House Are you a primary associate director career services to a significant other at home: No Do you presently have visiting nurse or other home services: No Patient Tobacco Use Status: Former Tobacco user Tobacco use type: Cigarette Years Smoked: 25 e-Cigarette/Vaping Use: Former Use Advance Directives Date on File: 04/10/25 service: No Current occupational status: retired Cognitive needs: No Hearing needs: No Vision needs: Yes (Reading glasses) Questionnaire PHQ-9 Over the last 2 weeks, how often have you been bothered by any of the following problems? 1. Little interest or pleasure in doing things: not at all 2. Feeling down, depressed, or hopeless: not at all 3. Trouble falling or staying asleep, or sleeping too much: not at all 4. Feeling tired or having little energy: not at all 5. Poor appetite or overeating: not at all 6. Feeling bad about yourself - or that you are a failure or have let yourself or your family down: not at all 7. Trouble concentrating on things, such as reading the newspaper or watching television: not at all 8. Moving or speaking so slowly that other people could have noticed. Or the opposite - being so fidgety or restless that you have been moving around a lot more than usual: not at all 9. Thoughts that you would be better off or of hurting yourself in some way: not at all Total score: 0 Depression Screening Interpretation: Negative Depression Screening Done: Yes Source: Developed by Drs. Gabriel Soria, Josephine Calvillo, Koko Hurley and colleagues, with an educational rudy from [employer]. Thrive Questionnaire Date Thrive assessed: 05/04/25 I am a: Patient Within the past 12 months, did the food you bought not last and you didn't have the money to get more?: Never true Within the past 12 months, did you worry whether your food would run out before you got money to buy more?: Never true Do you have trouble paying for medicines?: No Do you have trouble getting transportation to medical appointments?: No Do you have trouble paying your heating and electricity bill?: No Do you have trouble taking care of your child, family member or friend?: No Do you have trouble with day-to-day activities such as bathing, preparing meals, shopping, managing finances, etc.?: No Are you currently unemployed and looking for a job?: No Are you interested in more education?: No THRIVE Score: 0 AUDIT C Alcohol Use Questionnaire (AUDIT-C) 1. How often do you have a drink containing alcohol?: Monthly or less 2. How many drinks containing alcohol do you have on a typical day when you are drinking?: 1 or 2 3. How often do you have six or more drinks on one occasion?: Less than monthly Total Score: 2 DARIAN-7 AMB Questionnaire DARIAN-7 Date DARIAN - 7 assessed: 05/04/25 Feeling nervous, anxious, or on edge: 0 = Not at all Not being able to stop or control worryin = Not at all Worrying too much about different things: 0 = Not at all Trouble relaxin = Not at all Being so restless that it is hard to sit still: 0 = Not at all Becoming easily annoyed or irritable: 0 = Not at all Feeling afraid as if something awful might happen: 0 = Not at all Total DARIAN-7 score (0-4 normal; 5-9 mild; 10-14 moderate; 15-21 severe): 0 Source: Developed by Drs. Gabriel Soria, Josephine Calvillo, Koko Hurley and colleagues, with an educational rudy from [employer]. Review of Systems Narrative - Cardiovascular: Denies chest pain, shortness of breath, or palpitations. - Gastrointestinal: Denies constipation, diarrhea, or heartburn. - Musculoskeletal: Denies back pain or joint pain. - Ophthalmologic: Reports age-related macular degeneration diagnosis, scheduled for injection. Physical exam (Primary Care) Vital Signs: Last Vital Signs Temp 97.2 F 05/04/25 14:32 Pulse 71 05/04/25 14:32 BP 128/80 05/04/25 14:32 Pulse Ox 98 05/04/25 14:32 Oxygen Delivery Method Room Air 05/04/25 14:32 BMI result Body Mass Index 24.6 GENERAL Well developed, Well nourished/obese, in no apparent distress HEENT Head-Normocephalic Eyes- PERRLA, EOMI, Conjuctiva clear, lids WNL Ears- Canals clear, TMs WNL Mouth/Throat-No lesions, no erythema, no exudate Neck- Supple, No lymphadenopathy, thyroid WNL RESPIRATORY Normal I:E, Clear to auscultation CARDIOVASCULAR Regular, rate and rhythm, No murmurs or rubs GASTROINTESTINAL Soft, nontender, normal bowel sounds, no masses MUSCULOSKELETAL Back- nontender Joints- no swelling or deformity NEUROLOGICAL Gait normal PSYCHIATRIC Oriented to person, place and time Mood and affect WNL Appearance WNL Speech WNL Thought processes WNL Tobacco/Smoking Status: Tobacco use Status Tobacco use date assessed 05/04/25 05/04/25 14:21 Patient Tobacco Use Status Former Tobacco user 05/04/25 14:21 Tobacco use type Cigarette 05/04/25 14:21 e-Cigarette/Vaping Use Former Use 05/04/25 14:21 PHQ-9: PHQ-9 Score PHQ-9: Total score 0 05/04/25 14:37 Depression Screening Interpretation: Negative Thrive Assessment: Date of Thrive Assessment Date Thrive assessed 05/04/25 05/04/25 14:21 Coding Level of Care Code New Pt New Pt Level 4 (31100) Patient Type New Diagnoses Diabetes E11.9 HTN (hypertension) I10 BPH (benign prostatic hyperplasia) N40.0 GERD (gastroesophageal reflux disease) K21.9 SVT (supraventricular tachycardia) I47.10 CKD (chronic kidney disease) N18.9 Hyperlipemia E78.5 Anemia D64.9 Macular degeneration H35.30 Time Spent (min) 25 Comment Time spent on chart review, medication reconciliation, H&P, Patient education and orders Assessment & Plan Assessment & Plan (1) Diabetes: Comment: type 2-no meds-controlled w/diet & weight loss-glucose usually upper 80's to 90's-last A1C 5.6% per patient Code(s): E11.9 - Type 2 diabetes mellitus without complications Category: Medical Plan: The patient has diabetes mellitus with a recent HbA1c of 5.6%, indicating good control without medication. Continued monitoring of blood glucose levels is recommended. Patient to follow up in 3 months or sooner if needed (2) HTN (hypertension): Comment: BP today was 128/80 Code(s): I10 - Essential (primary) hypertension Category: Medical Plan: Controlled. Patient will continue current medications. Will monitor. Patient will follow up in 3 months. (3) BPH (benign prostatic hyperplasia): Code(s): N40.0 - Benign prostatic hyperplasia without lower urinary tract symptoms Category: Medical Plan: The patient is on tamsulosin and finasteride for BPH, with no reported urinary symptoms. Patient followed by Urology (4) GERD (gastroesophageal reflux disease): Comment: pantoprazole controls symptoms Code(s): K21.9 - Gastro-esophageal reflux disease without esophagitis Category: Medical Plan: The patient is managed on pantoprazole for GERD, with no reported symptoms of heartburn or gastrointestinal distress.Patient will continue current medications. Will monitor. Patient will follow up in 3 months (5) SVT (supraventricular tachycardia): Comment: 4 occurences 06/2024 to 07/2024-Rx for metoprolol & now controlled Code(s): I47.10 - Supraventricular tachycardia, unspecified Category: Medical Plan: The patient is on metoprolol for SVT and reports no recent episodes. Follow-up with a clinical immunologist is scheduled for June. (6) CKD (chronic kidney disease): Code(s): N18.9 - Chronic kidney disease, unspecified Category: Medical Plan: The patient has stable chronic kidney disease with slightly impaired kidney function. No nephrology consultation has been pursued, but regular monitoring is suggested. (7) Hyperlipemia: Code(s): E78.5 - Hyperlipidemia, unspecified Plan: Rosuvastatin was initiated preoperatively for hyperlipidemia management. Recent cholesterol levels are unavailable, and further monitoring is advised. (8) Anemia: Code(s): D64.9 - Anemia, unspecified Category: Medical Plan: Slight anemia was noted in recent lab work, though not significantly low. Monitoring of hemoglobin levels is recommended. (9) Macular degeneration: Code(s): H35.30 - Unspecified macular degeneration Category: Medical Plan: The patient was recently diagnosed with AMD and is scheduled for an injection in one eye. Follow-up with an lion tamer is advised. Plan During the visit, we discussed the management of the patient's chronic conditions, including diabetes, SVT, GERD, BPH, hyperlipidemia, anemia, chronic kidney disease, and AMD. We reviewed the current medication regimen and the importance of follow-up appointments with specialists, including cardiology and ophthalmology. The patient was advised to continue monitoring blood glucose levels and kidney function, and to adhere to the prescribed medication regimen. We also discussed the upcoming injection for AMD and the need for regular follow-up to monitor the condition. Medications: New lisinopril 10 mg PO DAILY 90 tabs 2RF for blood pressure metoprolol succinate ER 50 mg PO BEDTIME 90 tabs 2RF for svt aspirin 81 mg PO DAILY 90 tabs 3RF Changed From amlodipine 1 tab PO BEDTIME To amlodipine 5 mg PO BEDTIME 90 tabs 2RF for blood pressure From pantoprazole 1 tab PO DAILY@0630 To pantoprazole 40 mg PO DAILY@0630 90 tabs 2RF for acid Patient Instructions: - Continue current medication regimen as prescribed. - Monitor blood glucose levels regularly. - Schedule and attend follow-up appointments with clinical immunologist and ophthalmolog ist. - Undergo scheduled injection for AMD. - Report any new or worsening symptoms to the healthcare provider.
[2025-05-04 14:32] VITALS: BP 128/80; PULSE 71; TEMP 36.2; O2SAT 98; BMI 24.6
--- OUTSIDE RECORDS SUMMARY | 2025-05-04 18:01 | XMS_ITS | Patient Health Record ---
Author Organization [facility] Address [address] [place] [phone] Care Team Providers Care Top Precipitator Operator Helper Name Role Phone Nahid (RETIRED) Sonny BASHIR [...] Status Risk Notes Problem Gastroesophageal reflux disease (236972625) GERD without esophagitis (K21.9) Active confirmed Problem Colonoscopy refused ([id number]) Colonoscopy refused (Z53.20) Active confirmed Plan Of Treatment Future Test Test Name Order Date UPPER GI ENDOSCOPY 04/27/2020 Insurance Providers Payer Name Payer Address Payer Phone Subscriber Number Group Number Insured Name Patient Relationship to Insured Coverage Start Date Coverage End Date [facility] [address] [place] [phone] [id number] SABAS LEE Self - patient is the insured Medical (General) History Medical History History ICD Code Gastroesophageal reflux dise ase, upper endoscopy 05/29/20, no esophagitis, no BE or HP on biopsies hypertension Colonoscopy refused by patient Surgical History Surgery Date(Month/Year) lumbar laminectomy
--- OUTSIDE RECORDS SUMMARY | 2025-05-04 18:01 | XMS_ITS | Clinical Summary ---
Author Organization [facility] [employer] [facility] Address [address] [place] [address] Phone Care Team Providers Care Word Processing Operator Name Role Phone Passer, Makayla MAURICE Primary Care Provider [phone] Allergies No known active allergies Medications lisinopriL [...] (CMS/HCC V24) 06/29/2024 Overview (03/07/2025): - 05/2024 [facility] -Broke with IV metoprolol Assessment & [...] Team Description 03/07/2025 1:10 PM EDT Consult [facility] Cardiology [facility] [address] [place] [phone] Katrina Cantu, KADE SVT (supraventricular tachycardia) (CMS/HCC V24) (Primary Dx); LBBB (left bundle branch block); Hyperlipidemia, unspecified hyperlipidemia type; PSVT (paroxysmal supraventricular tachycardia) (CMS/HCC V24); Primary hypertension; Preop cardiovascular exam 03/07/2025 Telephone [facility] Cardiology [facility] [address] [place] [phone] Alyssa Piper MA 03/01/2025 Telephone [facility] Cardiology [facility] [address] [place] [address] Sanjeev Reese MD from Last 3 Months [...] Description 06/26/2025 1:40 PM EST Office Visit [facility] [address] [place] [phone] Jose Sullivan NP [address] [place] [address] [address] [place] [phone] Health Maintenance Due Date Last Done Comments [...] 03/07/2025 1:52 PM EDT SVT (supraventricular tachycardia) ([facility] V24) from Last 3 Months Results * ECG 12 lead (03/07/2025 1:52 PM EDT) Ventricular Rate ECG 67 BPM GEMUSE Atrial Rate 67 BPM GEMUSE P-R Interval 180 ms GEMUSE QRS Duration 140 ms GEMUSE Q-T Interval 422 ms GEMUSE QTc 445 ms GEMUSE P Wave [place] 59 degrees GEMUSE R [place] 69 degrees GEMUSE T [place] 72 degrees GEMUSE ECG Interpretation Normal sinus rhythm Left bundle branch block unchanged Confirmed by RUI JOHNSON ([id number]) on 03/08/2025 3:09:39 PM GEMUSE 03/07/2025 1:12 PM EDT 03/08/2025 3:09 PM EDT us Katrina Cantu HISTORY TEACHER ECG ORDERABLES Edited Result - Final GEMUSE from Last 3 Months Insurance [employer] Care Teams Word Processing Operator Relationship Specialty Start Date End Date Makayla Jones PA [address] [place] [phone] PCP - General Physician Orthopaedic General 03/07/25
== END 2025-05-04 15:04 | disposition home or self-care (01) ==
LOC: HO.HMCHD 14:08
PROVIDERS: PCP Internal Medicine; Visit Provider Physician Assistant Medical
DX: E11.9 Type 2 diabetes mellitus without complications (principal); I12.9 Hypertensive chronic kidney disease with stage 1 through stage 4 chronic kidney disease, or unspecified chronic kidney disease; N40.0 Benign prostatic hyperplasia without lower urinary tract symptoms; K21.9 Gastro-esophageal reflux disease without esophagitis; I47.10 Supraventricular tachycardia, unspecified; N18.9 Chronic kidney disease, unspecified; E78.5 Hyperlipidemia, unspecified; D64.9 Anemia, unspecified; H35.30 Unspecified macular degeneration

== ENCOUNTER → 2025-05-04 14:08 | Outpatient (BNVA) | payer MEDICARE, SELFPAY | PROVIDERS: PCP Internal Medicine; Visit Provider Physician Assistant Medical | DX: I10 Essential (primary) hypertension (principal); E11.9 Type 2 diabetes mellitus without complications; N40.0 Benign prostatic hyperplasia without lower urinary tract symptoms; K21.9 Gastro-esophageal reflux disease without esophagitis; I47.10 Supraventricular tachycardia, unspecified; N18.9 Chronic kidney disease, unspecified; E78.5 Hyperlipidemia, unspecified; D64.9 Anemia, unspecified; H35.30 Unspecified macular degeneration; Z79.899 Other long term (current) drug therapy | CPT/HCPCS: 96127; 99202 ==

== ENCOUNTER 2025-05-16 08:40 | Outpatient (REF) | payer MEDICARE, SELFPAY ==
--- OUTSIDE RECORDS SUMMARY | 2025-05-16 09:07 | XMS_ITS | Patient Health Record ---
Author Organization [facility] Address [address] [place] [phone] Care Team Providers Care Oil Well Perforator Operator Name Role Phone Nahid (RETIRED) Sonny BASHIR Primary Care Provider Unavailable Yanick Herr Jr Unavailable [phone] Allergies Allergen (clinical drug ingredient) Drug/Non Drug [...] Status Risk Notes Problem Gastroesophageal reflux disease (277426663) GERD without esophagitis (K21.9) Active confirmed Problem Colonoscopy refused (669017820987685) Colonoscopy refused (Z53.20) Active confirmed Plan Of Treatment Future Test Test Name Order Date UPPER GI ENDOSCOPY 04/27/2020 Insurance Providers Payer Name Payer Address Payer Phone Subscriber Number Group Number Insured Name Patient Relationship to Insured Coverage Start Date Coverage End Date [facility] [employer] [address] [place] [phone] [id number] SABAS LEE Self - patient is the insured Medical (General) History Medical History History ICD Code Gastroesophageal reflux dise ase, upper endoscopy 05/29/20, no esophagitis, no BE or HP on biopsies hypertension Colonoscopy refused by patient Surgical History Surgery Date(Month/Year) lumbar laminectomy
--- OUTSIDE RECORDS SUMMARY | 2025-05-16 09:07 | XMS_ITS | Clinical Summary ---
Author Organization [facility] Address [address] [place] [address] Phone Care Team Providers Care Travelers' Aid Worker Name Role Phone Passer, Makayla MAURICE Primary Care Provider [phone] Allergies No known active allergies Medications lisinopriL [...] (CMS/HCC V24) 06/29/2024 Overview (03/07/2025): - 05/2024 [facility] -Broke with IV metoprolol Assessment & [...] Team Description 03/07/2025 1:10 PM EDT Consult [facility] Cardiology [facility] - [address] [place] [phone] Katrina Cantu, KADE SVT (supraventricular tachycardia) (CMS/HCC V24) (Primary Dx); LBBB (left bundle branch block); Hyperlipidemia, unspecified hyperlipidemia type; PSVT (paroxysmal supraventricular tachycardia) (CMS/HCC V24); Primary hypertension; Preop cardiovascular exam 03/07/2025 Telephone [facility] Cardiology [facility] [address] [place] [phone] Alyssa Piper MA 03/01/2025 Telephone [facility] Cardiology [facility] - [facility] [address] [place] [address] Sanjeev Reese MD from Last 3 Months [...] Description 06/26/2025 1:40 PM EST Office Visit [facility] [address] [place] [phone] Jose Sullivan NP [address] [place] [address] [address] [place] [phone] Health Maintenance Due Date Last Done Comments [...] 03/07/2025 1:52 PM EDT SVT (supraventricular tachycardia) ([facility] V24) from Last 3 Months Results * ECG 12 lead (03/07/2025 1:52 PM EDT) Ventricular Rate ECG 67 BPM GEMUSE Atrial Rate 67 BPM GEMUSE P-R Interval 180 ms GEMUSE QRS Duration 140 ms GEMUSE Q-T Interval 422 ms GEMUSE QTc 445 ms GEMUSE P Wave [place] 59 degrees GEMUSE R [place] 69 degrees GEMUSE T [place] 72 degrees GEMUSE ECG Interpretation Normal sinus rhythm Left bundle branch block unchanged Confirmed by RUI JOHNSON ([id number]) on 03/08/2025 3:09:39 PM GEMUSE 03/07/2025 1:12 PM EDT 03/08/2025 3:09 PM EDT us Katrina Cantu FINISHER COLD ROLLING ECG ORDERABLES Edited Result - Final GEMUSE from Last 3 Months Insurance [employer] Care Teams Travelers' Aid Worker Relationship Specialty Start Date End Date Makayla Jones PA [address] [place] [phone] PCP - General Physician Project Controls Scheduler 03/07/25
[2025-05-16 09:29] LABS: Cholesterol 132 mg/dL (<200); HDL Cholesterol 50 mg/dL (>40); Triglycerides 63 mg/dL (<150)
[2025-05-16 11:42] LABS: Reflex LDLD? No
== END 2025-05-16 08:41 | disposition home or self-care (01) ==
LOC: HO.LAB 08:40
PROVIDERS: PCP Physician Assistant Medical; Visit Provider Nurse Practitioner Family
DX: E78.5 Hyperlipidemia, unspecified (principal)
CPT/HCPCS: 36415; 80061